=== PATIENT | male | born 1950 | race Caucasian/White ===

== ENCOUNTER 2018-06-17 13:31 | Inpatient (IN) ==
[2018-06-17] MEDS ORDERED: Aluminum/Magnesium/Simethacone Susp 30 ML UDC PO PRN (19:16)
[2018-06-17] MEDS ORDERED: Acetaminophen 325 MG Tablet PO PRN (19:16)
[2018-06-17] MEDS ORDERED: Dextrose 50% in Water 50 ML Vial IV.PUSH PRN (21:48)
[2018-06-17] MEDS ORDERED: LORazepam 0.5 MG Tablet SL PRN (23:28)
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
[2018-06-18] MEDS: Famotidine 20 MG Tablet PO SCH ×4 (00:52→21:00)
[2018-06-18] MEDS: Insulin NovoLOG Aspart Correctional Sugar Inj SQ SCH ×5 (03:45→21:00)
[2018-06-18] MEDS ORDERED: Docusate Sodium 100 MG Capsule PO PRN (09:00)
[2018-06-18] MEDS: Furosemide 40 MG Tablet PO SCH ×3 (09:31→21:00)
[2018-06-18] MEDS: Insulin Detemir Inj 1,000 UNIT/10 ML Vial SQ SCH ×2 (09:32→13:41)
[2018-06-18] MEDS: Enoxaparin Inj 40 MG/0.4 ML Syringe SQ SCH ×2 (09:32→13:42)
--- NOTE | 2018-06-18 10:11 | P.PNWCN ---
Wound Care Nurse Consult Description: Consult for Wound Management of Bilateral LE per EVELIA Castillo Communicated with: Patient RN Recommendation: Bilateral lower extremities Q3D and PRN soiling. Gently cleanse wounds using Normal Saline or Wound Cleanser and pat dry. Gamerco Cavilon skin barrier film to intact surrounding tight red skin. Apply Optifoam Gentle AG non adhesive dressing and secure with rolled gauze and SALIMA if desired. Encourage patient to elevate legs if tolerable when not ambulating. Additional information: Patient seen on sitting up in chair with legs dangling in common room for bilateral lower extremity wounds. Patient refused assessment of legs and [facility] Bilateral lower extremities appear tight, red, shiny, with multiple shallow wounds visualized anteriorly with minimal clear yellow exudate noted distally from wound beds down to top of pt socks. Wounds appear to be mixed etiology of venous and arterial according to their irregular and well defined shapes. Wounds are noted with full thickness and partial thickness skin loss. Patient is noted with CHF and E.F. of 15-20%. Patient is not a candidate for unna boot applications in my expert opinion, therefore recommendations were made for dressing changes Q3D using Optifoam gentle AG secured with cling.
--- NOTE | 2018-06-18 16:36 | P.PN ---
Subjective Interval history: Sitting up in day room, does not understand why he is in psychiatric unit. He wants to go home. Denies any chest pain, no shortness of breath. Indicates that he is in the process of buying a home. He does not recall the name of the radiology orderly who placed the AICD. No acute changes overnight. Physical Exam Vital signs: Vital Signs 06/18/18 05:38 Temperature 97 F L Pulse Rate 103 H Respiratory Rate 17 Blood Pressure 138/90 Pulse Oximetry 98 Narrative: GENERAL: 87-year-old elderly male, sitting up in the room, no apparent distress. Appears disheveled. SKIN: Venous stasis ulcers noted to lower extremity. There is chronic venous discoloration. There is some weeping of both legs. HEAD: Atraumatic. Normocephalic. EYES: Pupils equal and round. No scleral icterus. No injection or drainage. ENT: No nasal bleeding or discharge. Mucous membranes pink and moist. NECK: Trachea midline. No JVD. CARDIOVASCULAR: S1-S2, occasionally irregular. Unable to detect any murmurs rubs or gallops. CHEST: Left chest wall with dressing in place, zip tie suture in place. RESPIRATORY: No accessory muscle use. Clear to auscultation. Breath sounds equal bilaterally. GASTROINTESTINAL: Abdomen soft, non-tender, nondistended. Hepatic and splenic margins not palpable. MUSCULOSKELETAL: Extremities without clubbing, cyanosis, trace pretibial edema. No obvious deformities. NEUROLOGICAL: Awake, alert oriented 2, forgetful. Nonfocal deficits. PSYCHIATRIC: Anxious, cooperative. Results - Labs Laboratory Results - last 24 hr 06/18/18 06/18/18 03:39 07:58 POC Glucose 252 H 193 H Assessment and Plan - Plan - Plan Mr. Casey is a 67 y/o male with a history of hypertension, diabetes mellitus, CHF with an EF of 15 - 20% s/p recent AICD placement, and arthritis who was transferred from [facility] in [place] for admission to the med/ psych unit here for management of psychosis. Psychosis - Management per psychiatry - continue medications from [facility] pending psych evaluation CHF - BNP at [facility] reported [id number] on admission to [facility] 06/11 - progress notes from [facility] indicate EF of 15 - 20% with moderate to severe MR and moderate TR - continue cardiac medications from [facility]: Lasix, Losartan, Carvedilol, baby ASA - does not appear to be in acute CHF on exam - recent AICD placement - hopefully more reliable history will be available soon. He still has sutures in place. - lipid profile within normal parameters at [facility] Diabetes Mellitus - HgA1C 10.8 on 06/11 at [facility] - continue Levemir - Diabetic and Cardiac diet restrictions - Accu checks AC and HS and 0300 with low dose SS Novolog coverage - if blood glucose trends stable, D/C 0300 check - PRN hypoglycemia treatment protocol Bilateral LE wounds - appear chronic secondary to PVD - consult wound care nurse -input appreciated. Wound care orders noted DVT prophylaxis - continue Lovenox 40 mg subq q24h
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
[2018-06-19] MEDS: Insulin NovoLOG Aspart Correctional Sugar Inj SQ SCH ×5 (07:56→20:26)
[2018-06-19] MEDS: Famotidine 20 MG Tablet PO SCH ×2 (08:52→20:19)
[2018-06-19] MEDS: Furosemide 40 MG Tablet PO SCH ×2 (08:52→20:19)
[2018-06-19] MEDS: Insulin Detemir Inj 1,000 UNIT/10 ML Vial SQ SCH (08:52)
[2018-06-19] MEDS: Enoxaparin Inj 40 MG/0.4 ML Syringe SQ SCH (08:53)
--- NOTE | 2018-06-19 14:59 | P.PN ---
Subjective Interval history: follow up for medical management: pt. ambulating in day room on bare feet, wound to legs weeping serous fluid, no cp, no sob, ambulating without any difficulty, no fever, no acute changes overnight. Remains with disorganized thinking, doesn't understand why he is still here. Still can't recall when AICD was done, thinks 2 weeks ago. Not sure of facility Physical Exam Vital signs: Vital Signs 06/18/18 18:00 06/19/18 06:12 Temperature 97.6 F 98.4 F Pulse Rate 82 88 Respiratory Rate 17 17 Blood Pressure 123/66 107/71 Pulse Oximetry 99 97 Narrative: GENERAL: 87-year-old elderly male, sitting up in the room, no apparent distress. Appears disheveled. SKIN: Venous stasis ulcers noted to lower extremity. There is chronic venous discoloration. There is some weeping of both legs. HEAD: Atraumatic. Normocephalic. EYES: Pupils equal and round. No scleral icterus. No injection or drainage. ENT: No nasal bleeding or discharge. Mucous membranes pink and moist. NECK: Trachea midline. No JVD. CARDIOVASCULAR: S1-S2, occasionally irregular. Unable to detect any murmurs rubs or gallops. CHEST: Left chest wall with dressing in place, zip tie suture in place. RESPIRATORY: No accessory muscle use. Clear to auscultation. Breath sounds equal bilaterally. GASTROINTESTINAL: Abdomen soft, non-tender, nondistended. Hepatic and splenic margins not palpable. MUSCULOSKELETAL: Extremities without clubbing, cyanosis, trace pretibial edema. No obvious deformities. NEUROLOGICAL: Awake, alert oriented 2, forgetful. Nonfocal deficits. PSYCHIATRIC: Anxious, cooperative. Results - Labs Laboratory Results - last 24 hr 06/18/18 06/19/18 06/19/18 20:37 07:43 11:22 POC Glucose 357 H 177 H 344 H Assessment and Plan - Plan - Plan Mr. Casey is a 67 y/o male with a history of hypertension, diabetes mellitus, CHF with an EF of 15 - 20% s/p recent AICD placement, and arthritis who was transferred from [facility] in [place] for admission to the med/ psych unit here for management of psychosis. Psychosis - Management per psychiatry - continue medications from [facility] pending psych evaluation CHF - BNP at [facility] reported [id number] on admission to [facility] 06/11 - progress notes from [facility] indicate EF of 15 - 20% with moderate to severe MR and moderate TR - continue cardiac medications from [facility]: Lasix, Losartan, Carvedilol, baby ASA - does not appear to be in acute CHF on exam - recent AICD placement - hopefully more reliable history will be available soon. He still has sutures in place. Unclear when this was done, patient is a poor historian. Diabetes Mellitus - HgA1C 10.8 on 06/11 at [facility] - continue Levemir 30 units subcu daily - Accu checks AC and HS and 0300 with low dose SS Novolog coverage - if blood glucose trends stable, D/C 0300 check - PRN hypoglycemia treatment protocol -Blood sugars markedly elevated, changed to diabetic diet. Bilateral LE wounds - appear chronic secondary to PVD - consult wound care nurse -input appreciated. Wound care orders noted DVT prophylaxis - continue Lovenox 40 mg subq q24h BMP in the morning
--- NOTE | 2018-06-19 17:06 | P.PNPSY ---
Subjective Remarks: This is a request for second opinion. Admission note was reviewed and I agree with the history. Patient was seen and case was discussed with nursing. Patient remains grossly confused and disorganized. He is pressured and hyperverbal. However, he is alert and oriented 3 today. Patient believes that the bank is about to approve him for alone in his house and that [facility] send him a email to come to [place] since we take care of veterans. He is perseverative on discharge. He denies depressed mood and denies suicidal or homicidal ideation intent or plan. Denies auditory or visual hallucinations Mental Status Examination Appearance: Appropriate Consciousness: Alert Orientation: Person, Place, Date/Time Motor Activity: Normal gait Speech: Unremarkable Language: Adequate Fund of Knowledge: Inadequate Attention and Concentration: Easily distracted Memory: Impaired Mood: Good Affect: Anxious Thought Process & Associations: Circumstantial, Disorganized Thought Content: Delusional Hallucination Type: None Delusion Type: Bizarre Suicidal Ideation: No Suicidal Plan: No Suicidal Intention: No Homicidal Ideation: No Homicidal Plan: No Homicidal Intention: No Insight: Poor Judgment: Poor Assessment and Plan - Assessment (1) Unspecified psychosis Code(s): F29 - Unspecified psychosis not due to a substance or known physiological condition Status: Acute - Plan Plan: I agree with the first opinion to continue petition. Criteria include acute psychosis Justification for Continued Inpatient Stay: Patient would decompensate in a less restrictive setting
--- NOTE | 2018-06-19 17:34 | ECG ---
Date Performed: 06/17/2018 Time Performed: 20:26:50 PTAGE: 67 years EKG: Sinus rhythm WITH SINUS ARRHYTHMIA RIGHT BUNDLE BRANCH BLOCK LEFT ANTERIOR FASCICULAR BLOCK SEPTAL MYOCARDIAL INF ARCTION , PROBABLY OLD ABNORMAL ECG NO PREVIOUS TRACING DOCTOR: Mitra Kramer Interpretating Date/Time 06/19/2018 17:30:08
[2018-06-19 18:28] LABS: Baso # (Auto) 0.1 th/mm3 (0.0-0.2); Baso % (Auto) 0.9 % (0.0-2.0); Eos # (Auto) 0.2 th/mm3 (0.0-0.4); Eos % (Auto) 2.2 % (0.0-4.0); Hematocrit 39.3 % (39.0-51.0); Hemoglobin 13.1 gm/dL (13.0-17.0); Lymph # (Auto) 1.3 th/mm3 (1.0-4.8); Lymph % (Auto) 18.3 % (9.0-44.0); Mean Corpuscular HGB Conc 33.2 % (32.0-36.0); Mean Corpuscular Hemoglobin 29.1 pg (27.0-34.0); Mean Corpuscular Volume 87.6 fL (80.0-100.0); Mean Platelet Volume 6.7 fL (7.0-11.0); Mono # (Auto) 0.7 th/mm3 (0.0-0.9); Mono % (Auto) 9.4 % (0.0-8.0); Neut # (Auto) 5.1 th/mm3 (1.8-7.7); Neut % (Auto) 69.2 % (16.0-70.0); Platelet Count 236 th/mm3 (150-450); Red Blood Count 4.48 mil/mm3 (4.50-5.90); Red Cell Distribution Width 16.6 % (11.6-17.2); White Blood Count 7.3 th/mm3 (4.0-11.0)
[2018-06-19 18:47] LABS: Albumin 3.3 g/dL (3.4-5.0); Anion Gap 9 meq/L (5-15); Aspartate Aminotransferase 14 U/L (15-37); Blood Urea Nitrogen 35 mg/dL (7-18); Calcium 8.7 mg/dL (8.5-10.1); Carbon Dioxide 28.1 meq/L (21.0-32.0); Chloride 103 meq/L (98-107); Glomerular Filtration Rate 44 mL/min (>89); Glucose,Random 198 mg/dL (74-106); Potassium 4.7 meq/L (3.5-5.1); Sodium 140 meq/L (136-145)
[2018-06-19 18:59] LABS: Alanine Aminotransferase 26 U/L (12-78); Alkaline Phosphatase 108 U/L (45-117); Total Protein 7.2 g/dL (6.4-8.2)
[2018-06-20] MEDS: Insulin NovoLOG Aspart Correctional Sugar Inj SQ SCH ×5 (03:48→21:24)
[2018-06-20] MEDS: Famotidine 20 MG Tablet PO SCH ×2 (08:17→20:36)
[2018-06-20] MEDS: Furosemide 40 MG Tablet PO SCH ×2 (08:17→17:31)
[2018-06-20] MEDS: Enoxaparin Inj 40 MG/0.4 ML Syringe SQ SCH (08:17)
[2018-06-20] MEDS: Insulin Detemir Inj 1,000 UNIT/10 ML Vial SQ SCH (08:17)
--- NOTE | 2018-06-20 14:00 | P.PNPSY ---
Subjective Remarks: On psychiatric evaluation today the patient presents quite guarded, oppositional , stating that he does not want to talk with me. He says that he has been kidnapped and putting in fci here. He says that he is a [place] he does not want to be here, he was to be in the [facility]. He denies suicidal and homicidal ideation, denies visual and auditory hallucinations. The patient has been quite isolated in the unit, making accusations, but no aggressive Mental Status Examination Appearance: Appropriate Consciousness: Alert Orientation: Person, Place, Date/Time Motor Activity: Normal gait Speech: Unremarkable Language: Adequate Fund of Knowledge: Inadequate Attention and Concentration: Easily distracted Memory: Impaired Mood: Good Affect: Anxious Thought Process & Associations: Circumstantial, Disorganized Thought Content: Delusional Hallucination Type: None Delusion Type: Bizarre Suicidal Ideation: No Suicidal Plan: No Suicidal Intention: No Homicidal Ideation: No Homicidal Plan: No Homicidal Intention: No Insight: Poor Judgment: Poor Assessment and Plan - Assessment (1) Unspecified psychosis Code(s): F29 - Unspecified psychosis not due to a substance or known physiological condition Status: Acute - Plan Plan: Encourage the patient to take psychotropics. Continue hospitalization for stabilization. The patient continues to be paranoid Justification for Continued Inpatient Stay: Continue psychiatric hospitalization for stabilization.
--- NOTE | 2018-06-20 16:13 | P.PN ---
Subjective Interval history: follow up for medical management: pt. removed dressings last night after they were done, states legs were hurting. No cp, no sob. Legs with less edema today. Poor historian Physical Exam Vital signs: Vital Signs 06/19/18 18:00 06/19/18 20:00 06/20/18 06:22 Temperature 98.3 F 98.7 F Pulse Rate 87 79 Respiratory Rate 18 18 16 Blood Pressure 117/78 107/72 Pulse Oximetry 98 96 Intake & Output 06/19/18 06/20/18 06/20/18 18:59 06:59 18:59 Intake Total 1080 / 1080 Balance 1080 / 1080 Intake: Oral 1080 / 1080 Narrative: GENERAL: 87-year-old elderly male, sitting up in the room, no apparent distress. Appears disheveled. SKIN: Venous stasis ulcers noted to lower extremity. There is chronic venous discoloration. There is some weeping of both legs. HEAD: Atraumatic. Normocephalic. EYES: Pupils equal and round. No scleral icterus. No injection or drainage. ENT: No nasal bleeding or discharge. Mucous membranes pink and moist. NECK: Trachea midline. No JVD. CARDIOVASCULAR: S1-S2, occasionally irregular. Unable to detect any murmurs rubs or gallops. CHEST: Left chest wall with dressing in place, zip tie suture in place. RESPIRATORY: No accessory muscle use. Clear to auscultation. Breath sounds equal bilaterally. GASTROINTESTINAL: Abdomen soft, non-tender, nondistended. Hepatic and splenic margins not palpable. MUSCULOSKELETAL: Extremities without clubbing, cyanosis, trace pretibial edema. No obvious deformities. NEUROLOGICAL: Awake, alert oriented 2, forgetful. Nonfocal deficits. PSYCHIATRIC: Anxious Results - Labs CBC & Chem 7: 06/19/18 18:10 06/19/18 18:10 Laboratory Results - last 24 hr 06/19/18 06/19/18 06/19/18 16:43 18:10 18:10 WBC 7.3 RBC 4.48 L Hgb 13.1 Hct 39.3 MCV 87.6 MCH 29.1 MCHC 33.2 RDW 16.6 Plt Count 236 MPV 6.7 L Neut % (Auto) 69.2 Lymph % (Auto) 18.3 [place]ce[place] % (Auto) 9.4 H Eos % (Auto) 2.2 Baso % (Auto) 0.9 Neut # (Auto) 5.1 Lymph # (Auto) 1.3 [place] # (Auto) 0.7 Eos # (Auto) 0.2 Baso # (Auto) 0.1 WBC Differential . Differential Comment Auto diff final Sodium 140 Potassium 4.7 Chloride 103 Carbon Dioxide 28.1 Anion Gap 9 BUN 35 H Creatinine 1.58 H Estimated GFR 44 L POC Glucose 250 H Random Glucose 198 H Calcium 8.7 Total Bilirubin 0.9 AST 14 L ALT 26 Alkaline Phosphatase 108 Total Protein 7.2 Albumin 3.3 L 06/19/18 06/20/18 06/20/18 19:51 03:46 07:19 WBC RBC Hgb Hct MCV MCH MCHC RDW Plt Count MPV Neut % (Auto) Lymph % (Auto) [place]ce[place] % (Auto) Eos % (Auto) Baso % (Auto) Neut # (Auto) Lymph # (Auto) [place]ceana # (Auto) Eos # (Auto) Baso # (Auto) WBC Differential Differential Comment Sodium Potassium Chloride Carbon Dioxide Anion Gap BUN Creatinine Estimated GFR POC Glucose 240 H 89 107 Random Glucose Calcium Total Bilirubin AST ALT Alkaline Phosphatase Total Protein Albumin 06/20/18 11:18 WBC RBC Hgb Hct MCV MCH MCHC RDW Plt Count MPV Neut % (Auto) Lymph % (Auto) [place] % (Auto) Eos % (Auto) Baso % (Auto) Neut # (Auto) Lymph # (Auto) [place] # (Auto) Eos # (Auto) Baso # (Auto) WBC Differential Differential Comment Sodium Potassium Chloride Carbon Dioxide Anion Gap BUN Creatinine Estimated GFR POC Glucose 317 H Random Glucose Calcium Total Bilirubin AST ALT Alkaline Phosphatase Total Protein Albumin Assessment and Plan - Plan - Plan Mr. Casey is a 67 y/o male with a history of hypertension, diabetes mellitus, CHF with an EF of 15 - 20% s/p recent AICD placement, and arthritis who was transferred from [facility] in [place] for admission to the med/ psych unit here for management of psychosis. Psychosis pt. remains paranoid, doesn't believe he belongs here - Management per psychiatry CHF - BNP at [facility] reported [id number] on admission to [facility] 06/11 - progress notes from [facility] indicate EF of 15 - 20% with moderate to severe MR and moderate TR - continue cardiac medications from [facility]: Lasix, Losartan, Carvedilol, baby ASA - does not appear to be in acute CHF on exam - recent AICD placement - hopefully more reliable history will be available soon. He still has sutures in place. Unclear when this was done, patient is a poor historian. For now keep dressing in place, we have no other information. No next of kin information either to verify when device was placed. Renal insufficiency Creat 1.58 -Dec. Lasix to 20 mg PO BID Diabetes Mellitus - HgA1C 10.8 on 06/11 at [facility] - continue Levemir 30 units subcu daily - Accu checks AC and HS and 0300 with low dose SS Novolog coverage - - PRN hypoglycemia treatment protocol -Blood sugars markedly elevated, changed to diabetic diet. Bilateral LE wounds - appear chronic secondary to PVD - consult wound care nurse -input appreciated. Wound care orders noted -pt. removed dressings last night, RN will attempt to re-wrap again. DVT prophylaxis - continue Lovenox 40 mg subq q24h Labs reviewed
[2018-06-21] MEDS: Insulin NovoLOG Aspart Correctional Sugar Inj SQ SCH ×7 (06:24→21:48)
[2018-06-21] MEDS: Famotidine 20 MG Tablet PO SCH ×2 (09:33→21:07)
[2018-06-21] MEDS: Insulin Detemir Inj 1,000 UNIT/10 ML Vial SQ SCH (09:33)
[2018-06-21] MEDS: Enoxaparin Inj 40 MG/0.4 ML Syringe SQ SCH (09:34)
[2018-06-21] MEDS: Furosemide 40 MG Tablet PO SCH ×2 (09:37→17:34)
--- NOTE | 2018-06-21 16:43 | P.PNPSY ---
Subjective Remarks: Patient seen for follow-up, chart reviewed. Discussion with nursing staff reported that the patient discharge focused, refusing to let staff to wrap his legs where he has ulcers, expresses being worried about his vehicle. Patient was found ambulating on unit with draining ulcer and was redirected back to his room and encouraged staff to assist in cleaning it which he refused initially but later had showered and attempted to clean himself. He continues to refuse have staff to wrap his m stating that having been told by slot service specialist at a previous hospital that he should not be wrapped. Patient continues to be' s discharge focused, was encouraged to allow staff to care for his wound/ulcer on the lower extremities and was encouraged to wait to be evaluated by the medical team and wound care is consult team for recommendations. Collateral admission was obtained by therapist with patient's son provided some history the patient's treatments (see therapist noted in chart). Patient continues to report wanting to be discharged to find his vehicle and make his way down to [place]. He continues to state that the email that he received was email from the [employer] and no longer stating that it was from directly for [facility]. Review of Systems All other systems reviewed negative except as stated in HPI Mental Status Examination Appearance: Appropriate Consciousness: Alert Orientation: Person, Place, Date/Time Motor Activity: Normal gait Speech: Unremarkable Language: Adequate Fund of Knowledge: Inadequate Attention and Concentration: Easily distracted Memory: Impaired Mood: Good Affect: Anxious Thought Process & Associations: Circumstantial Thought Content: Preoccupations (With his vehicle and to be discharged), Delusional Hallucination Type: None Delusion Type: Bizarre Suicidal Ideation: No Suicidal Plan: No Suicidal Intention: No Homicidal Ideation: No Homicidal Plan: No Homicidal Intention: No Insight: Poor Judgment: Poor Assessment and Plan - Assessment (1) Unspecified psychosis Code(s): F29 - Unspecified psychosis not due to a substance or known physiological condition Status: Acute - Plan Plan: Patient at this time continues to be discharged focus, concerned about his vehicle which may be impounded. Patient clarified now that his [facility] was [facility] not from [facility] specifically. Collateral formation confirmed the patient has no past psychiatric history and was previously living in [place] where her son had assisted him at a detention center until patient decided to try back to [place] which led to his hospitalization. Patient's continues to be unable to be contacted. We will continue to coordinate with patient's VA services to have patient transferred directly to the [facility] for continued evaluation and management of ongoing medical issues. Patient not endorsing any perceptual services, noted to have concrete thought process linear, not noted to be psychotic but may have MCI. Justification for Continued Inpatient Stay: At risk for further decompensation if at lower level of care.
[2018-06-22] MEDS: Insulin NovoLOG Aspart Correctional Sugar Inj SQ SCH ×6 (03:00→20:54)
[2018-06-22] MEDS: Furosemide 40 MG Tablet PO SCH ×2 (10:02→17:39)
[2018-06-22] MEDS: Famotidine 20 MG Tablet PO SCH ×2 (10:02→20:55)
[2018-06-22] MEDS: Insulin Detemir Inj 1,000 UNIT/10 ML Vial SQ SCH (10:02)
[2018-06-22] MEDS: Enoxaparin Inj 40 MG/0.4 ML Syringe SQ SCH (10:04)
--- NOTE | 2018-06-22 13:16 | P.TTN ---
- Patient Problems Problems: 1. Discharge planning 2. Medication compliance 3. Knowledge deficit 4. Lack of coping skills - Progress Toward Goals Provider Present: Dr. Karissa Randle Provider Input: Pt is delusional. There is no one to sign for medication. He had recent heart surgery. Nurse(s) Present: Rick Nurse Input: Pt is med compliant although he is refusing care for his ulcered wounds. He is DC oriented, with cognitive deficits, and desires to transfer to the [facility]. Psychiatric Counselors Present: Kiara Evans LCSW, Chad Brambila Jr., [facility], Debbie Hoff, [facility], Other Psychiatric Therapist Input: Pt is grandiose and delusional. He is covered 90% through the [facility]. He is connected to the [facility] in [place]. Group Spec/RT/OT/CRUZ Present: ANTHONY Arroyo Group Spec/RT/OT/CRUZ Input: Pt does not participate in groups - Documentation Teaching Recipient: Patient
--- NOTE | 2018-06-22 14:38 | P.PNPSY ---
Subjective Remarks: Patient seen for follow, chart reviewed. Discussion nursing staff reported the patient continued to be discharge focused, we will take medications morning stated he would start to refuse medication at discharge. Patient was found sitting hospital chair noted to be somewhat irritable and with some increased paranoia stating that he is being held against his will and that he refuses to eat or take medicines and believes that he will be poisoned here as he is not allowed to leave. Patient was encouraged to continue his treatment for his medical issues and that should continues actively arranging for safe discharge plan and reconnection with him to the VA services. Patient was encouraged to continue recommendations as per prior medical team for lower extremity ulcers which at this time does not appear to be draining. Review of Systems All other systems reviewed negative except as stated in HPI Mental Status Examination Appearance: Appropriate Consciousness: Alert Orientation: Person, Place, Date/Time Motor Activity: Normal gait Speech: Unremarkable Language: Adequate Fund of Knowledge: Inadequate Attention and Concentration: Easily distracted Memory: Impaired Mood: Good Affect: Anxious Thought Process & Associations: Circumstantial Thought Content: Preoccupations (With his vehicle and to be discharged), Delusional Hallucination Type: None Delusion Type: Bizarre Suicidal Ideation: No Suicidal Plan: No Suicidal Intention: No Homicidal Ideation: No Homicidal Plan: No Homicidal Intention: No Insight: Poor Judgment: Poor Assessment and Plan - Assessment (1) Unspecified psychosis Code(s): F29 - Unspecified psychosis not due to a substance or known physiological condition Status: Acute - Plan Plan: Patient this time continues to be discharge focused, believing that he is being held against his will with now believing that staff is wanting to poison him which he therefore states he will refuse to eat or take any medicines here in the hospital as he is being held against his will. Patient had no sources paranoia prior to admission but frustration of being a locked unit and may be contributing to his current paranoid ideations which is likely contextual due to his involuntary hospitalization. Continue to encourage patient to continue current medical treatment. Continue to monitor mood and behavior. Treatment team actively attended to coordinate safe discharge plan with the [place] as patient' s son does not want to be involved in patient's care. Justification for Continued Inpatient Stay: At risk for decompensation a lower level care.
[2018-06-23] MEDS: Insulin NovoLOG Aspart Correctional Sugar Inj SQ SCH ×5 (03:08→21:43)
[2018-06-23] MEDS: Insulin Detemir Inj 1,000 UNIT/10 ML Vial SQ SCH (08:45)
[2018-06-23] MEDS: Famotidine 20 MG Tablet PO SCH ×2 (08:48→21:04)
[2018-06-23] MEDS: Enoxaparin Inj 40 MG/0.4 ML Syringe SQ SCH (08:49)
[2018-06-23] MEDS: Furosemide 40 MG Tablet PO SCH (08:49)
--- NOTE | 2018-06-23 11:44 | P.TTN ---
- Patient Problems Problems: 1. Discharge planning 2. Medication compliance 3. Knowledge deficit 4. Lack of coping skills - Progress Toward Goals Provider Present: Dr. Karissa Randle Provider Input: Pt is delusional. There is no one to sign for medication. He had recent heart surgery. 06/23/18: Pt is expected to attend court hearing for legal considerations. Nurse(s) Present: Rick Nurse Input: Pt is med compliant although he is refusing care for his ulcered wounds. He is DC oriented, with cognitive deficits, and desires to transfer to the [place] hospital. 06/23/18: Pt continues to require medical care for wounds, he continues to express desire to return to [place] hospital. Psychiatric Counselors Present: Kiara Evans LCSW, Chad Brambila Jr., [facility], Debbie Hoff, [facility], Other Psychiatric Therapist Input: Pt is grandiose and delusional. He is covered 90% through the [place]. He is connected to the [place] in [place]. 06/23/18: Pt continues to meet criteria, expected discharge may include return to [facility]. Per Debbie's contact with family, family related housing is not an option. Group Spec/RT/OT/CRUZ Present: MARCY Mejia, ANTHONY Arroyo, Adriano Macias, OT Group Spec/RT/OT/CRUZ Input: Pt does not participate in groups. 06/23/18: Pt does not attend groups, per pt refusals. - Discharge Plan Per medical staff; Pt expected to attend court hearing on 06/24/18, pt's D/C plan option is to return pt to [facility], pending court approval. - Documentation Scribe: Adriano Macias, MS, OTR Teaching Recipient: Patient
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
--- NOTE | 2018-06-23 15:30 | P.PNPSY ---
Subjective Remarks: Patient seen today with nurse Bryan, chart reviewed, Dr. Randle H&P and progress notes also reviewed along with neuropsychological report by Dr. Stacy. Patient seen by me alert diffusely disoriented somewhat confused in his statements so he denies suicidality house. He is not certain how or why he finally wound up. [employer] except for the "[place] thing". In any event at this time patient does make criteria. Patient will be brought to [facility] tomorrow further assessment Review of Systems All other systems reviewed negative except as stated in HPI Mental Status Examination Appearance: Appropriate Consciousness: Alert Orientation: Person, Place, Date/Time (Vaguely) Motor Activity: Normal gait Speech: Unremarkable Language: Adequate Fund of Knowledge: Inadequate Attention and Concentration: Easily distracted Memory: Impaired Mood: Other (Euthymic to mildly irritable) Affect: Other (Slight increased range and intensity) Thought Process & Associations: Circumstantial, Disorganized Thought Content: Preoccupations (With his vehicle and to be discharged), Delusional Hallucination Type: None Delusion Type: Bizarre Suicidal Ideation: No Suicidal Plan: No Suicidal Intention: No Homicidal Ideation: No Homicidal Plan: No Homicidal Intention: No Insight: Poor Judgment: Poor Assessment and Plan - Assessment (1) Unspecified psychosis Code(s): F29 - Unspecified psychosis not due to a substance or known physiological condition Status: Acute - Plan Plan: Patient remains somewhat psychotic diffusely confused and disorganized. Patient scheduled for [facility] tomorrow Justification for Continued Inpatient Stay: At this time patient would decompensate a place to a lower level of care Discharge Planning: To be determined patient scheduled for [facility] tomorrow
[2018-06-24] MEDS: Famotidine 20 MG Tablet PO SCH ×2 (08:13→20:51)
[2018-06-24] MEDS: Enoxaparin Inj 40 MG/0.4 ML Syringe SQ SCH (08:14)
[2018-06-24] MEDS: Furosemide 40 MG Tablet PO SCH ×2 (10:58→11:08)
[2018-06-24] MEDS: Insulin Detemir Inj 1,000 UNIT/10 ML Vial SQ SCH (11:19)
[2018-06-24] MEDS: Insulin NovoLOG Aspart Correctional Sugar Inj SQ SCH ×3 (11:19→17:04)
--- NOTE | 2018-06-24 16:11 | P.PNPSY ---
Subjective Remarks: [place], patient retained by Silverio Florez. [employer] appointed his guardian advocate. Patient remains somewhat confused delusional and disorganized. Though showing some irritability with the decision made by the court. For now continue treatment Review of Systems All other systems reviewed negative except as stated in HPI Mental Status Examination Appearance: Appropriate Consciousness: Alert Orientation: Person, Place, Date/Time (Vaguely) Motor Activity: Normal gait Speech: Unremarkable Language: Adequate Fund of Knowledge: Inadequate Attention and Concentration: Easily distracted Memory: Impaired Mood: Other (Euthymic to mildly irritable) Affect: Other (Slight increased range and intensity) Thought Process & Associations: Circumstantial, Disorganized Thought Content: Preoccupations (With his vehicle and to be discharged), Delusional Hallucination Type: None Delusion Type: Bizarre Suicidal Ideation: No Suicidal Plan: No Suicidal Intention: No Homicidal Ideation: No Homicidal Plan: No Homicidal Intention: No Insight: Poor Judgment: Poor Assessment and Plan - Assessment (1) Unspecified psychosis Code(s): F29 - Unspecified psychosis not due to a substance or known physiological condition Status: Acute - Plan Plan: Patient remains confused somewhat psychotic and delusional. Justification for Continued Inpatient Stay: At this time patient would decompensate a place to a lower level of care Discharge Planning: To be determined Request Healthcare Surrogate/Guardian Advocate?: Yes
[2018-06-25] MEDS: Insulin NovoLOG Aspart Correctional Sugar Inj SQ SCH ×4 (09:38→21:09)
[2018-06-25] MEDS: Enoxaparin Inj 40 MG/0.4 ML Syringe SQ SCH (09:41)
[2018-06-25] MEDS: Insulin Detemir Inj 1,000 UNIT/10 ML Vial SQ SCH (09:44)
[2018-06-25] MEDS: Furosemide 40 MG Tablet PO SCH (09:48)
--- NOTE | 2018-06-25 09:49 | P.PNPSY ---
Subjective Remarks: In the dayroom with nurse Radha. Chart reviewed. Patient continues upset confused over the [place] proceedings yesterday. He was retained by Silverio Florez. Patient appears to be quite selective in choosing what he remembers and how he interprets statements made at the hearing. His confusion delusions psychosis remained. Guardian advocate as being appointed. We will offer Resporal 0.5 mg twice daily Review of Systems All other systems reviewed negative except as stated in HPI Mental Status Examination Appearance: Appropriate Consciousness: Alert Orientation: Person, Place, Date/Time (Vaguely) Motor Activity: Normal gait Speech: Unremarkable Language: Adequate Fund of Knowledge: Inadequate Attention and Concentration: Easily distracted Memory: Impaired Mood: Other (Euthymic to mildly irritable) Affect: Other (Slight increased range and intensity) Thought Process & Associations: Circumstantial, Disorganized Thought Content: Preoccupations (With his vehicle and to be discharged), Delusional Hallucination Type: None Delusion Type: Bizarre, Paranoid Suicidal Ideation: No Suicidal Plan: No Suicidal Intention: No Homicidal Ideation: No Homicidal Plan: No Homicidal Intention: No Insight: Poor Judgment: Poor Assessment and Plan - Assessment (1) Unspecified psychosis Code(s): F29 - Unspecified psychosis not due to a substance or known physiological condition Status: Acute - Plan Plan: At this time patient remains confused and psychotic. She retained by [facility] to be guardian advocate. 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
[2018-06-25] MEDS: Famotidine 20 MG Tablet PO SCH ×2 (09:51→21:09)
[2018-06-25] MEDS: risperiDONE 0.5 MG ODT PO SCH (21:09)
[2018-06-26] MEDS: Insulin NovoLOG Aspart Correctional Sugar Inj SQ SCH ×5 (06:51→20:05)
[2018-06-26] MEDS: Famotidine 20 MG Tablet PO SCH ×2 (08:42→20:29)
[2018-06-26] MEDS: Insulin Detemir Inj 1,000 UNIT/10 ML Vial SQ SCH (08:43)
[2018-06-26] MEDS: Enoxaparin Inj 40 MG/0.4 ML Syringe SQ SCH (08:43)
[2018-06-26] MEDS: risperiDONE 0.5 MG ODT PO SCH ×2 (08:43→20:29)
[2018-06-26] MEDS: Furosemide 40 MG Tablet PO SCH (08:43)
--- NOTE | 2018-06-26 08:47 | P.PNPSY ---
Subjective Remarks: Patient is seen in day room with nurse Gila, patient, more cooperative today showing less irritability vigilance and paranoia. He is compliant with his medications. Still with little to no insight. The grandiosity also continues. For now continue treatment no change Review of Systems All other systems reviewed negative except as stated in HPI Mental Status Examination Appearance: Appropriate Consciousness: Alert Orientation: Person, Place, Date/Time (Vaguely) Motor Activity: Normal gait Speech: Unremarkable Language: Adequate Fund of Knowledge: Inadequate Attention and Concentration: Easily distracted Memory: Impaired Mood: Other (Euthymic to mildly irritable) Affect: Other (Slight increased range and intensity) Thought Process & Associations: Circumstantial, Disorganized Thought Content: Preoccupations (With his vehicle and to be discharged), Delusional Hallucination Type: None Delusion Type: Bizarre, Paranoid Suicidal Ideation: No Suicidal Plan: No Suicidal Intention: No Homicidal Ideation: No Homicidal Plan: No Homicidal Intention: No Insight: Poor Judgment: Poor Assessment and Plan - Assessment (1) Unspecified psychosis Code(s): F29 - Unspecified psychosis not due to a substance or known physiological condition Status: Acute - Plan Plan: Patient remains confused disoriented though calm today with no significant behavioral problems compliant medication Justification for Continued Inpatient Stay: At this time patient would decompensate if placed in a lower level of care Discharge Planning: To be determined Request Healthcare Surrogate/Guardian Advocate?: Yes (1) Unspecified psychosis Qualifiers: Psychosis type: brief psychotic disorder Qualified Code(s): F23 - Brief psychotic disorder
--- NOTE | 2018-06-26 15:08 | P.PN ---
Subjective Interval history: Follow-up on patient with bilateral lower extremity wounds, recent AICD placement, diabetes. Patient seen and examined. Patient denies any acute medical complaints. He denies any chest pain or shortness of breath. He denies any fever or chills. He denies any nausea, vomiting or abdominal pain. Patient tells me that something bad is going to happen to [place] and he is going to buy four guard dogs which will cost him about $10,000 to help protect himself. He also tells me that he has $1 million lawsuit back in [place] and the money is in escrow. Physical Exam Vital signs: Vital Signs 06/25/18 17:34 06/26/18 06:42 Temperature 98.5 F 97.8 F Pulse Rate 74 75 Respiratory Rate 18 16 Blood Pressure 93/57 L 132/65 Pulse Oximetry 97 95 Intake & Output 06/25/18 06/26/18 06/26/18 18:59 06:59 18:59 Intake Total 1200 / 1200 480 / 480 Balance 1200 / 1200 480 / 480 Weight 83 kg Intake: Oral 1200 / 1200 480 / 480 Other: # Voids 2 Weight On Admission 83 kg Narrative: GENERAL: 67-year-old elderly male patient, INAD. Awake and alert. Sitting in day room watching TV. SKIN: Venous stasis ulcers noted to bilateral lower extremities. There is chronic venous discoloration. +eschars noted on both lower extremities weeping drainage. HEAD: Atraumatic. Normocephalic. EYES: Pupils equal and round. No scleral icterus. No injection or drainage. ENT: No nasal bleeding or discharge. Mucous membranes pink and moist. NECK: Trachea midline. CARDIOVASCULAR: S1-S2, occasionally irregular. Unable to detect any murmurs rubs or gallops. CHEST: Left chest wall with dressing in place, zip tie suture in place, no evidence of infection. RESPIRATORY: No accessory muscle use. Clear to auscultation. Breath sounds equal bilaterally. GASTROINTESTINAL: Abdomen soft, non-tender, nondistended. MUSCULOSKELETAL: Extremities without clubbing, cyanosis, trace pretibial edema. No obvious deformities. NEUROLOGICAL: Awake, alert. Able to move all extremities spontaneously. Nonfocal deficits. Normal speech. PSYCHIATRIC: Calm and cooperative with exam. Delusional thinking. Results - Labs CBC & Chem 7: 06/19/18 18:10 06/19/18 18:10 Laboratory Results - last 24 hr 06/25/18 06/25/18 06/26/18 15:42 19:43 04:32 POC Glucose 211 H 193 H 194 H 06/26/18 06/26/18 07:39 11:31 POC Glucose 214 H 232 H Assessment and Plan - Plan Mr. Casey is a 67 y/o male with a history of hypertension, diabetes mellitus, CHF with an EF of 15 - 20% s/p recent AICD placement, and arthritis who was transferred from [facility] in [place] for admission to the med/ psych unit here for management of psychosis. Psychosis - Management per psychiatry Systolic CHF, not in acute decompensation BNP at [place] reported [id number] on admission to [place] [place] 06/11 progress notes from [place] indicate EF of 15 - 20% with moderate to severe MR and moderate TR -Continue on Lasix at decreased dose 20 mg twice daily. Monitor electrolytes. -Patient appears euvolemic on exam, continue to monitor for signs of fluid overload -recent AICD placement - He still has sutures in place. Unclear when this was done, patient is a poor historian. For now keep dressing in place, we have no other information. Unable to get reliable verification regarding when and where AICD was placed Hypertension, now hypotensive BP 93/57 -Hold losartan. Continue on carvedilol with hold parameters. -Monitor BP and adjust treatment accordingly Renal insufficiency No baseline labs for comparison -Avoid nephrotoxic agents -Monitor kidney function as indicated, repeat BMP in a.m. Diabetes Mellitus HgA1C 10.8 on 06/11 at [facility] Blood sugars with fair control, running low to mid 200s -Change to Levemir 15 units twice daily and add preprandial NovoLog 3 units TIDAC -Accu checks AC and HS and 0300 with low dose SS Novolog coverage -PRN hypoglycemia treatment protocol Bilateral LE wounds - appear chronic secondary to PVD Cellulitis BLE -consult wound care nurse -input appreciated. Wound care orders placed. Patient has been refusing wound care. -obtain wound cx left anterior lower leg wound -Start on Keflex 500mg QID, monitor for improvement -Consider vascular surgery consult DVT prophylaxis -continue Lovenox 40 mg subq q24h Discussed Condition With: patient, nursing staff, Dr. Mckeon
[2018-06-26] MEDS: Furosemide 20 MG Tablet PO SCH ×2 (15:31→17:29)
[2018-06-27] MEDS: Insulin NovoLOG Aspart Correctional Sugar Inj SQ SCH ×5 (04:28→21:37)
[2018-06-27] MEDS: risperiDONE 0.5 MG ODT PO SCH ×2 (08:30→21:09)
[2018-06-27] MEDS: Enoxaparin Inj 40 MG/0.4 ML Syringe SQ SCH (08:30)
[2018-06-27] MEDS: Famotidine 20 MG Tablet PO SCH ×2 (08:30→21:09)
[2018-06-27] MEDS: Furosemide 20 MG Tablet PO SCH ×2 (08:37→17:03)
[2018-06-27] MEDS ORDERED: Insulin Detemir Inj 1,000 UNIT/10 ML Vial SQ SCH ×2 (09:00→14:17)
[2018-06-27 10:57] LABS: Calcium 9.2 mg/dL (8.5-10.1); Carbon Dioxide 26.8 meq/L (21.0-32.0); Potassium 4.4 meq/L (3.5-5.1)
--- NOTE | 2018-06-27 14:37 | P.PN ---
Subjective Interval history: Follow-up on patient with bilateral lower extremity wounds, recent AICD placement, diabetes. Patient seen and examined. Patient denies any acute medical complaints. He has been refusing SALIMA wraps to BLEs. His wounds continue to drain. He denies any fever or chills. He denies any chest pain or shortness of breath. Physical Exam Vital signs: Vital Signs 06/26/18 17:50 06/27/18 05:21 Temperature 97.6 F 99.1 F Pulse Rate 80 77 Respiratory Rate 18 17 Blood Pressure 118/69 122/85 Pulse Oximetry 98 94 L Intake & Output 06/26/18 06/27/18 06/27/18 18:59 06:59 18:59 Intake Total 1520 / 1520 960 / 960 Balance 1520 / 1520 960 / 960 Intake: Oral 1520 / 1520 960 / 960 Other: # Voids 3 1 Narrative: GENERAL: 67-year-old elderly male patient, INAD. Awake and alert. Sitting in day room watching TV. Appears comfortable. SKIN: Venous stasis ulcers noted to bilateral lower extremities. There is chronic venous discoloration. +eschars noted on both lower extremities weeping drainage. Distal pulses not palpable. Bilateral feet warm. HEENT: Atraumatic. Normocephalic. Pupils equal and round. No scleral icterus. No injection or drainage. No nasal bleeding or discharge. Mucous membranes pink and moist. NECK: Trachea midline. CARDIOVASCULAR: S1-S2, occasionally irregular. Unable to detect any murmurs rubs or gallops. CHEST: Left chest wall with dressing in place, zip tie suture in place, no evidence of infection. RESPIRATORY: No accessory muscle use. Clear to auscultation. Breath sounds equal bilaterally. GASTROINTESTINAL: Abdomen soft, non-tender, nondistended. MUSCULOSKELETAL: Extremities without clubbing, cyanosis, trace pretibial edema. No obvious deformities. NEUROLOGICAL: Awake, alert. Able to move all extremities spontaneously. Nonfocal deficits. Normal speech. PSYCHIATRIC: Calm and cooperative with exam. Delusional grandiose thinking. Results - Labs CBC & Chem 7: 06/19/18 18:10 06/27/18 10:09 Laboratory Results - last 24 hr 06/26/18 06/26/18 06/27/18 16:25 20:01 01:59 Sodium Potassium Chloride Carbon Dioxide Anion Gap BUN Creatinine Estimated GFR POC Glucose 207 H 144 H 169 H Random Glucose Calcium 06/27/18 06/27/18 10:09 11:33 Sodium 140 Potassium 4.4 Chloride 104 Carbon Dioxide 26.8 Anion Gap 9 BUN 40 H Creatinine 1.56 H Estimated GFR 44 L POC Glucose 310 H Random Glucose 268 H Calcium 9.2 Microbiology 06/26/18 16:00 Abscess - Leg Gram Stain - Final Assessment and Plan - Plan Mr. Casey is a 67 y/o male with a history of hypertension, diabetes mellitus, CHF with an EF of 15 - 20% s/p recent AICD placement, and arthritis who was transferred from [facility] in [place] for admission to the med/ psych unit here for management of psychosis. Psychosis - Management per psychiatry Systolic CHF, not in acute decompensation BNP at [facility] reported [id number] on admission to [facility] 06/11 progress notes from [facility] indicate EF of 15 - 20% with moderate to severe MR and moderate TR -Continue on Lasix at decreased dose 20 mg twice daily. Monitor electrolytes. -start on low dose ACEI. Continue on BB. -Patient appears euvolemic on exam, continue to monitor for signs of fluid overload -recent AICD placement - He still has sutures in place. Unclear when this was done, patient is a poor historian. For now keep dressing in place, we have no other information. Unable to get reliable verification regarding when and where AICD was placed. Hypertension, now hypotensive BP 93/57 9/2 BP better today, now 122/85 -D/C losartan, start on low dose ACEI. Continue on carvedilol with hold parameters. -Monitor BP and adjust treatment accordingly Renal insufficiency No baseline labs for comparison Suspect Cr is at or near baseline -Avoid nephrotoxic agents -Monitor kidney function as indicated Diabetes Mellitus HgA1C 10.8 on 06/11 at [facility] Blood sugars with fair control, running low to mid 200s -Patient has been refusing ISS and preprandial insulin intermittently. Will increase Levemir to 18u BID. Continue on preprandial NovoLog 3 units TIDAC. -Accu checks AC and HS and 0300 with low dose SS Novolog coverage -PRN hypoglycemia treatment protocol Bilateral LE wounds - appear chronic secondary to PVD Cellulitis BLE -consult wound care nurse -input appreciated. Wound care orders placed. Patient has been refusing wound care. -obtain wound cx left anterior lower leg wound/pending -Started on Keflex 500mg QID, monitor for improvement -Vascular surgery consult, appreciate assistance -Podiatry consult, appreciate assistance DVT prophylaxis -continue Lovenox 40 mg subq q24h Discussed Condition With: patient, nursing staff, Dr. Daigle
[2018-06-28] MEDS: Insulin NovoLOG Aspart Correctional Sugar Inj SQ SCH ×6 (03:11→22:18)
--- NOTE | 2018-06-28 08:46 | P.PNPSY ---
Subjective Remarks: This is a late entry from 06/27/18. Reviewed electronic medical records and discussed case with staff. Follow-up was conducted in the hallway. Patient continues to be very confused. He is discharged focused. He was advised that he has to stay as is positive for MRSA. He informed staff that he would like to go to "hyperbaric chamber" and that he has money for it. Mental Status Examination Appearance: Appropriate Consciousness: Alert Orientation: Person, Place, Date/Time (Vaguely) Motor Activity: Normal gait Speech: Unremarkable Language: Adequate Fund of Knowledge: Inadequate Attention and Concentration: Easily distracted Memory: Impaired Mood: Other (Euthymic to mildly irritable) Affect: Other (Slight increased range and intensity) Thought Process & Associations: Circumstantial, Disorganized Thought Content: Preoccupations (With his vehicle and to be discharged), Delusional Hallucination Type: None Delusion Type: Bizarre, Paranoid Suicidal Ideation: No Suicidal Plan: No Suicidal Intention: No Homicidal Ideation: No Homicidal Plan: No Homicidal Intention: No Insight: Poor Judgment: Poor Assessment and Plan - Assessment (1) Unspecified psychosis Code(s): F29 - Unspecified psychosis not due to a substance or known physiological condition Status: Acute - Plan Plan: Patient will be reevaluated tomorrow by the attending psychiatrist. Continue with current treatment plan. Justification for Continued Inpatient Stay: Moving this patient to a less restrictive environment would likely result in decompensation. Request Healthcare Surrogate/Guardian Advocate?: Yes (1) Unspecified psychosis Qualifiers: Psychosis type: brief psychotic disorder Qualified Code(s): F23 - Brief psychotic disorder
[2018-06-28] MEDS: Lisinopril 5 MG Tablet PO SCH (08:59)
[2018-06-28] MEDS: risperiDONE 0.5 MG ODT PO SCH (08:59)
[2018-06-28] MEDS: Famotidine 20 MG Tablet PO SCH ×2 (09:00→21:00)
[2018-06-28] MEDS: Insulin Detemir Inj 1,000 UNIT/10 ML Vial SQ SCH ×2 (09:00→22:09)
[2018-06-28] MEDS: Enoxaparin Inj 40 MG/0.4 ML Syringe SQ SCH (09:00)
[2018-06-28] MEDS: Furosemide 20 MG Tablet PO SCH ×2 (09:00→17:29)
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
--- NOTE | 2018-06-28 09:56 | P.PN ---
Subjective Interval history: Follow-up on patient with bilateral lower extremity wounds, recent AICD placement, diabetes. Patient seen and examined. She has poor historian secondary to psychosis. Patient denies any acute medical complaints. Denies any fever or chills. Denies any chest pain or shortness of breath. He is still refusing wound care/SALIMA wraps bilateral lower extremities. Physical Exam Vital signs: Vital Signs 06/27/18 17:52 06/28/18 05:58 Temperature 98.3 F 97.9 F Pulse Rate 78 91 H Respiratory Rate 18 16 Blood Pressure 126/78 138/86 Pulse Oximetry 95 96 Intake & Output 06/27/18 06/28/18 06/28/18 18:59 06:59 18:59 Intake Total 1560 / 1560 340 / 340 360 / 360 Balance 1560 / 1560 340 / 340 360 / 360 Intake: Oral 1560 / 1560 240 / 240 360 / 360 Oral Supplement 100 / 100 Other: # Voids 3 2 Narrative: GENERAL: 67-year-old elderly male patient, INAD. Awake and alert. Ambulating without any difficulty in his room. SKIN: Venous stasis changes BLEs. +eschars noted on both lower extremities weeping drainage. Distal pulses not palpable. Bilateral feet warm. HEENT: Atraumatic. Normocephalic. Pupils equal and round. No scleral icterus. No injection or drainage. No nasal bleeding or discharge. Mucous membranes pink and moist. NECK: Trachea midline. CARDIOVASCULAR: S1-S2, occasionally irregular. Unable to detect any murmurs rubs or gallops. CHEST: Left chest wall with dressing in place, zip tie suture in place, no evidence of infection. RESPIRATORY: No accessory muscle use. Clear to auscultation. Breath sounds equal bilaterally. GASTROINTESTINAL: Abdomen soft, non-tender, nondistended. MUSCULOSKELETAL: Extremities without clubbing, cyanosis, trace pretibial edema. No obvious deformities. NEUROLOGICAL: Awake, alert. Able to move all extremities spontaneously. Nonfocal deficits. Normal speech. PSYCHIATRIC: Calm and cooperative with exam. Delusional grandiose thinking. Results - Labs CBC & Chem 7: 06/19/18 18:10 06/27/18 10:09 Laboratory Results - last 24 hr 06/27/18 06/27/18 06/27/18 10:09 11:33 16:26 Sodium 140 Potassium 4.4 Chloride 104 Carbon Dioxide 26.8 Anion Gap 9 BUN 40 H Creatinine 1.56 H Estimated GFR 44 L POC Glucose 310 H 110 Random Glucose 268 H Calcium 9.2 06/27/18 06/28/18 06/28/18 20:44 03:05 06:11 Sodium Potassium Chloride Carbon Dioxide Anion Gap BUN Creatinine Estimated GFR POC Glucose 200 H 190 H 182 H Random Glucose Calcium Microbiology 06/26/18 16:00 Abscess - Leg Gram Stain - Final 06/26/18 16:00 Abscess - Leg Wound Culture - Preliminary S. aureus MRSA Assessment and Plan - Plan Mr. Casey is a 67 y/o male with a history of hypertension, diabetes mellitus, CHF with an EF of 15 - 20% s/p recent AICD placement, and arthritis who was transferred from [facility] in [place] for admission to the med/ psych unit here for management of psychosis. Psychosis - Management per psychiatry Systolic CHF, not in acute decompensation BNP at [facility] reported [id number] on admission to [facility] 06/11 progress notes from [facility] indicate EF of 15 - 20% with moderate to severe MR and moderate TR -Continue on Lasix at decreased dose 20 mg twice daily. Monitor electrolytes. -started on low dose ACEI. Continue on BB. -Patient appears euvolemic on exam, continue to monitor for signs of fluid overload -recent AICD placement - He still has sutures in place. Unclear when this was done, patient is a poor historian. For now keep dressing in place, we have no other information. Unable to get reliable verification regarding when and where AICD was placed. Hypertension Hypotension, improved -Continue on lisinopril 5 mg daily and carvedilol with hold parameters. -Monitor BP and adjust treatment accordingly Renal insufficiency No baseline labs for comparison Suspect Cr is at or near baseline -Avoid nephrotoxic agents -Monitor kidney function as indicated Diabetes Mellitus HgA1C 10.8 on 06/11 at [facility] Blood sugars with fair control, running high 100s/low 200 -Patient has been refusing ISS and preprandial insulin intermittently. Increase Levemir to 20u BID. Hold preprandial insulin for now. -Accu checks with low dose SS Novolog coverage -PRN hypoglycemia treatment protocol Bilateral LE stasis dermatitis - appear chronic secondary to suspected PVD Open wounds and cellulitis BLE, MRSA -consult wound care nurse -input appreciated. Wound care orders placed. Patient has been refusing wound care. -Wound cx + MRSA. Started on po Doxycycline. ID consulted, concern if po abx sufficient. -Vascular surgery following, appreciate assistance. ABIs ordered/will follow up on results. -Podiatry consult, appreciate assistance DVT prophylaxis -continue Lovenox 40 mg subq q24h Discussed Condition With: patient, nursing staff, Dr. Daigle Discharge Planning: discharge disposition per primary team
--- NOTE | 2018-06-28 15:55 | P.PNPSY ---
Subjective Remarks: Patient seen in his room today with nurse Marce, chart reviewed, patient compliant medication. Patient is still somewhat confused disoriented wanting now to go to the [facility] swing get some sort of barium treatment for his legs. We will increase Resporal to Review of Systems All other systems reviewed negative except as stated in HPI Mental Status Examination Appearance: Appropriate Consciousness: Alert Orientation: Person, Place, Date/Time (Vaguely) Motor Activity: Normal gait Speech: Unremarkable Language: Adequate Fund of Knowledge: Inadequate Attention and Concentration: Easily distracted Memory: Impaired Mood: Other (Euthymic to mildly irritable) Affect: Other (Slight increased range and intensity) Thought Process & Associations: Circumstantial, Disorganized Thought Content: Preoccupations (With his vehicle and to be discharged), Delusional Hallucination Type: None Delusion Type: Bizarre, Paranoid Suicidal Ideation: No Suicidal Plan: No Suicidal Intention: No Homicidal Ideation: No Homicidal Plan: No Homicidal Intention: No Insight: Poor Judgment: Poor Assessment and Plan - Assessment (1) Unspecified psychosis Code(s): F29 - Unspecified psychosis not due to a substance or known physiological condition Status: Acute - Plan Plan: Patient continues confused somewhat delusional and grandiose Justification for Continued Inpatient Stay: At this time patient would decompensate a place to a lower level of care Discharge Planning: To be determined Request Healthcare Surrogate/Guardian Advocate?: Yes (1) Unspecified psychosis Qualifiers: Psychosis type: brief psychotic disorder Qualified Code(s): F23 - Brief psychotic disorder
[2018-06-28] MEDS: Collagenase Oint 30 GM Tube TOPICAL SCH (17:38)
--- NOTE | 2018-06-28 18:09 | MB ---
cc: Didi Rizo DPM DATE: 06/28/2018 REASON FOR CONSULTATION: Bilateral leg wounds. HISTORY OF PRESENT ILLNESS: The patient was seen at bedside accompanied by his nurse, but little history is ascertained given his underlying psychosis. REVIEW OF SYSTEMS: Unable to obtain. PAST MEDICAL HISTORY: Per medical record, CAD, CHF, DM, hypertension. PAST SURGICAL HISTORY: ICD, left total knee, bilateral hips. ACTIVE MEDICATIONS: 1. Acetaminophen. 2. Carvedilol. 3. Dextrose. 4. Docusate. 5. Doxycycline. 6. Enoxaparin. 7. Famotidine. 8. Finasteride. 9. Glucagon. 10. Insulin. 11. Lisinopril. 12. Lorazepam. 13. Risperidone. LABORATORY DATA: The most recent on 06/27/2018, sodium 140, potassium 4.4, creatinine 1.56. WBC 7.3, platelets 236. PHYSICAL EXAMINATION: Bilateral shins with fibrotic serous draining ulcers. There is no exposed bone or tendon. The right is approximately 4 x 4. The left is approximately 2 x 2. DP and PT nonpalpable. Lower extremities warm to warm. PLAN: Local wound care with Adaptic, Santyl, bilateral dry sterile dressings, change daily. Keep elevated. He is currently pending blood flow studies with Dr. Jackson. No surgical intervention per podiatry plans. The patient can be discharged to wound care and reconsult podiatry if any additional intervention needed. Didi Rizo DPM SR/tiffany , 05:32 PM , 05:40 PM
--- NOTE | 2018-06-28 19:32 | P.CONID ---
History of Present Illness Service: ID Consult date: 06/28/18 Requesting Physician: Annette Snow Reason for Consult: MRSA BLE wound infection, cellulitis Primary Care Provider: UNKNOWN Chief Complaint: Transferred from [place] for Psychosis History of Present Illness: 67 yo male admitted to [facility] after [place] c/o BL wounds present for few months Pt has h/o chronic BLE edema and apparently CHF He is a poor historian, history mainly thru th chart ab=nfd other providers He states hat his wounds are tender He finds them improving Clx are positive for MRSA He has low grade fever up to 100; no leukocytosis + endorses h/o PE Review of Systems All other systems reviewed negative except as stated in HPI PMFSH - History History Provided By: Patient, Medical Record - Medical History Medical History: Medical History (Last Reviewed 06/29/18 @ 05:07 by Alba Hodge MD) CAD (coronary artery disease) CHF (congestive heart failure) Diabetes mellitus Hypertension - Surgical History Surgical History: Surgical History (Last Reviewed 06/29/18 @ 05:07 by Alba Hodge MD) History of implantable cardioverter-defibrillator (ICD) placement History of left knee replacement Hx of bilateral hip replacements - Family History Family History: Family History (Last Reviewed 06/29/18 @ 05:07 by Alba Hodge MD) Son Family history of drug abuse - Tobacco History Smoking Status: Never smoker - Travel History Recent Travel in the [facility] Within the Last 8 Weeks: Yes Medications and Allergies Active Medications: Active Medications Acetaminophen (Tylenol) 650 mg PO Q4H PRN PRN Reason: Pain 1-5 or Temp >101F Last Admin: 06/19/18 22:06 Dose: 650 mg Al Hydrox/Mg Hydrox/Simethicone (Mag-Al Plus Susp Liq) 30 ml PO Q6H PRN PRN Reason: DYSPEPSIA Al Hydroxide/Mg Hydroxide (Milk Of Magnesia Liq) 30 ml PO DAILY PRN PRN Reason: Mild Constipation Aspirin (Aspirin Chew) 81 mg PO DAILY [facility] Last Admin: 06/28/18 08:59 Dose: 81 mg Carvedilol (Coreg) 3.125 mg PO BID [facility] Last Admin: 06/28/18 08:59 Dose: 3.125 mg Collagenase (Santyl Oint) 1 applicatio TOPICAL DAILY [facility] Last Admin: 06/28/18 17:38 Dose: Not Given Dextrose (D50w Vial) 50 ml IV.PUSH UNSCH PRN PRN Reason: PER HYPOGLYCEMIA PROTOCOL Docusate Sodium (Colace) 100 mg PO BID PRN PRN Reason: CONSTIPATION Doxycycline Hyclate (Vibratab) 100 mg PO Q12HR [facility] Last Admin: 06/28/18 08:59 Dose: 100 mg Enoxaparin Sodium (Lovenox Inj) 40 mg SQ DAILY [facility] Last Admin: 06/28/18 09:00 Dose: 40 mg Famotidine (Pepcid) 20 mg PO BID [facility] Last Admin: 06/28/18 09:00 Dose: 20 mg Furosemide (Lasix) 20 mg PO BID@0900,1800 [facility] Last Admin: 06/28/18 17:29 Dose: 20 mg Glucagon (Glucagon Inj) 1 mg OTHER PRN PRN PRN Reason: for Hypoglycemia Protocol Insulin Aspart (Novolog Insulin Correctional Sugar Inj) 0 unit SQ ACHS AND 3AM [facility]; Protocol Last Admin: 06/28/18 17:30 Dose: Not Given Insulin Aspart (Novolog Inj) 3 units SQ TIDAC [facility] Last Admin: 06/27/18 16:42 Dose: 3 units Insulin Detemir (Levemir Inj) 20 unit SQ BID [facility] Last Admin: 06/28/18 09:00 Dose: 20 unit Lisinopril (Prinivil) 5 mg PO DAILY [facility] Last Admin: 06/28/18 08:59 Dose: 5 mg Lorazepam (Ativan) 0.5 mg SL TID PRN PRN Reason: AGITATION Risperidone (Risperdal M-Tab) 1 mg PO BID [facility] Allergies Allergy/AdvReac Type Severity Reaction Status Date / Time No Known Allergies Allergy Verified 06/17/18 17:36 Home Medications Medication Instructions Recorded Confirmed Type acetaminophen 650 mg PO Q8H PRN 06/17/18 06/17/18 History aspirin 81 mg PO DAILY 06/17/18 06/17/18 History cephalexin 500 mg PO TID 06/17/18 06/17/18 History docusate sodium 100 mg PO PRN 06/17/18 06/17/18 History doxycycline monohydrate 100 mg PO BID 06/17/18 06/17/18 History enoxaparin [Lovenox] 40 mg SUB-Q DAILY 06/17/18 06/17/18 History famotidine 20 mg PO BID 06/17/18 06/17/18 History furosemide 40 mg PO BID 06/17/18 06/17/18 History furosemide 40 mg PO DAILY 06/17/18 06/17/18 History insulin glargine [Lantus U-100 30 unit SUB-Q DAILY 06/17/18 06/17/18 History Insulin] insulin lispro 1 sliding scale dose SUB-Q UD 06/17/18 06/17/18 History insulin lispro 10 unit SUB-Q TID 06/17/18 06/17/18 History lorazepam 0.5 mg SUBLINGUAL TID PRN 06/17/18 06/17/18 History losartan 25 mg PO DAILY 06/17/18 06/17/18 History nitroglycerin 0.4 mg SUBLINGUAL Q5-15M PRN 06/17/18 06/17/18 History Exam Vital signs: Vital Signs 06/28/18 05:58 06/28/18 18:18 Temperature 97.9 F 100.1 F H Pulse Rate 91 H 77 Respiratory Rate 16 17 Blood Pressure 138/86 114/61 Pulse Oximetry 96 95 Intake & Output 06/28/18 06/28/18 06/29/18 06:59 18:59 06:59 Intake Total 340 / 340 960 / 960 Balance 340 / 340 960 / 960 Intake: Oral 240 / 240 960 / 960 Oral Supplement 100 / 100 Other: # Voids 2 - Constitutional no acute distress, average body habitus - Routine HEENT Exam Head: Present: normocephalic, atraumatic Eye: Present: EOMI, PERRL ENT: Present: mucous membranes moist, oropharynx clear Comments: poor dentition - Routine Neck Exam Present: supple, full ROM - Routine Chest/Breast/Axilla Exam Chest wall: Present: pacemaker (on L chest , stitches in place, no edema or erythema, well approximated incition) - Routine Respiratory Exam Present: decreased breath sounds, CTA bilaterally - Routine Cardiovascular Exam Present: RRR, S1, S2 - Routine Abdominal Exam Present: soft, normoactive bowel sounds Comments: not tender not distended, no organo megaly, n masses - Routine Extremities Exam Comments: no cyanosis , no clubbing + mild edema + brick color erythema and chronic appearing b/ ankle hyperpygmentation B/l morales ulcers, R sided appear > 50% granulated, 2 larger ulcers on L morales, ankle are with nearly 100% necrotic bed no ascending lymphangitis or lymphadenopathy - Routine Skin Exam Present: intact, dry, warm - Routine Neurological Exam Present: alert, oriented X3, CN II-XII intact, moving all extremities, vision grossly intact, hearing grossly intact, normal speech - Routine Psychiatric Exam Present: normal affect, cooperative Results - Labs CBC & Chem 7: 06/19/18 18:10 06/27/18 10:09 Labs: Laboratory Results - last 24 hr 06/27/18 06/28/18 06/28/18 20:44 03:05 06:11 POC Glucose 200 H 190 H 182 H 06/28/18 19:28 POC Glucose 231 H Assessment and Plan - Plan B/L low extremeties cellulitis B/l ankle wounds with stigmata of poor healing MRSA infection of BLE wounds, on appropriate abx (doxycyline) CHF and chronic BLE edema cont po abx treatment agree with vascular w/u Distribution of the wounds is more c/w venostasis wounds, however now edema is contrlled and if pt wounds still not healing PVD w/u will be needed will follow ELIZABETH results
[2018-06-28] MEDS: risperiDONE 1 MG ODT PO SCH (21:10)
[2018-06-29] MEDS: Insulin NovoLOG Aspart Correctional Sugar Inj SQ SCH ×5 (03:00→21:10)
--- NOTE | 2018-06-29 08:39 | P.PN ---
Subjective Interval history: Follow-up on patient with bilateral lower extremity wounds, recent AICD placement, diabetes. Patient seen and examined. Patient appears more irritable this morning. States he was kidnapped. Asking why we are refusing to send him to the [facility]. Tells me he is completely healthy and does not need to be here. He denies any acute medical complaints. Denies any chest pain or shortness of breath. Denies any fever or chills. ABIs ordered by vascular team. Physical Exam Vital signs: Vital Signs 06/28/18 18:18 06/29/18 06:00 Temperature 100.1 F H 99.5 F Pulse Rate 77 89 Respiratory Rate 17 17 Blood Pressure 114/61 129/72 Pulse Oximetry 95 93 L Intake & Output 06/28/18 06/29/18 06/29/18 18:59 06:59 18:59 Intake Total 960 / 960 580 / 580 Balance 960 / 960 580 / 580 Intake: Oral 960 / 960 480 / 480 Oral Supplement 100 / 100 Other: # Voids 2 Narrative: GENERAL: 67-year-old elderly male patient, INAD. Awake and alert. Sitting on side of bed eating breakfast. SKIN: Venous stasis changes BLEs. +eschars noted on both lower extremities weeping drainage, dressed in kerlex. Distal pulses not palpable. Bilateral feet warm. HEENT: Atraumatic. Normocephalic. Pupils equal and round. No scleral icterus. No injection or drainage. No nasal bleeding or discharge. Mucous membranes pink and moist. NECK: Trachea midline. CARDIOVASCULAR: S1-S2, occasionally irregular. Unable to detect any murmurs rubs or gallops. CHEST: Left chest wall with dressing in place, zip tie suture in place, no evidence of infection. RESPIRATORY: No accessory muscle use. Clear to auscultation. Breath sounds equal bilaterally. GASTROINTESTINAL: Abdomen soft, non-tender, nondistended. MUSCULOSKELETAL: Extremities without clubbing, cyanosis, trace pretibial edema. No obvious deformities. NEUROLOGICAL: Awake and alert. Able to move all extremities spontaneously. No focal neurologic findings appreciated. Normal speech. PSYCHIATRIC: Mildly irritable. Calm and cooperative with exam. Delusional grandiose thinking. Results - Labs CBC & Chem 7: 06/19/18 18:10 06/27/18 10:09 Laboratory Results - last 24 hr 06/28/18 06/29/18 06/29/18 19:28 03:32 06:04 POC Glucose 231 H 145 H 164 H 06/29/18 07:32 POC Glucose 155 H Microbiology 06/26/18 16:00 Abscess - Leg Gram Stain - Final 06/26/18 16:00 Abscess - Leg Wound Culture - Final S. aureus MRSA Assessment and Plan - Plan Mr. Casey is a 67 y/o male with a history of hypertension, diabetes mellitus, CHF with an EF of 15 - 20% s/p recent AICD placement, and arthritis who was transferred from [facility] in [place] for admission to the med/ psych unit here for management of psychosis. Psychosis - Management per psychiatry Systolic CHF, not in acute decompensation BNP at [facility] reported [id number] on admission to [facility] 06/11 progress notes from [facility] indicate EF of 15 - 20% with moderate to severe MR and moderate TR -Continue on Lasix at decreased dose 20 mg twice daily. Monitor electrolytes. -started on low dose ACEI, continue. Continue on BB. -Patient appears euvolemic on exam, continue to monitor for signs of fluid overload -recent AICD placement - He still has sutures in place. Unclear when this was done, patient is a poor historian. For now keep dressing in place, we have no other information. Unable to get reliable verification regarding when and where AICD was placed. Hypertension Hypotension, improved -Continue on lisinopril 5 mg daily and carvedilol with hold parameters. -Monitor BP and adjust treatment accordingly Renal insufficiency No baseline labs for comparison Suspect Cr is at or near baseline -Avoid nephrotoxic agents -Monitor kidney function as indicated Diabetes Mellitus HgA1C 10.8 on 06/11 at [facility] Blood sugars with fair control, running high 100s/low 200 -Patient has been refusing ISS and preprandial insulin intermittently. Increase Levemir to 22u BID. Discontinue preprandial insulin. -Accu checks with low dose SS Novolog coverage -PRN hypoglycemia treatment protocol Bilateral LE stasis dermatitis - appear chronic secondary to suspected PVD Open wounds and cellulitis BLE, MRSA Wound cx + MRSA. Started on po Doxycycline. -ID, Vascular surgery and podiatry following, appreciate assistance. Per ID , continue with Doxycycline po. Per Podiatry, no surgical intervention, wound care orders placed. -ABIs ordered/will follow up on results. DVT prophylaxis -continue Lovenox 40 mg subq q24h Discussed Condition With: patient, nursing staff, Dr. Madrid Discharge Planning: discharge disposition per primary team
[2018-06-29] MEDS: Insulin Detemir Inj 1,000 UNIT/10 ML Vial SQ SCH ×2 (09:38→22:04)
[2018-06-29] MEDS: Enoxaparin Inj 40 MG/0.4 ML Syringe SQ SCH (09:42)
[2018-06-29] MEDS: Lisinopril 5 MG Tablet PO SCH (09:44)
[2018-06-29] MEDS: Famotidine 20 MG Tablet PO SCH ×2 (09:44→21:10)
[2018-06-29] MEDS: Furosemide 20 MG Tablet PO SCH ×2 (09:45→17:49)
[2018-06-29] MEDS: risperiDONE 1 MG ODT PO SCH ×2 (09:45→21:10)
[2018-06-29] MEDS: Collagenase Oint 30 GM Tube TOPICAL SCH ×2 (10:43→14:08)
--- NOTE | 2018-06-29 12:47 | P.TTN ---
- Patient Problems Problems: 1. Discharge planning 2. Medication compliance 3. Knowledge deficit 4. Lack of coping skills - Progress Toward Goals Provider Present: Dr. Inessa Aldridge, Dr. Karissa Randle Provider Input: Patient is being treated medically, and stablizing with treatment. Pt is delusional. There is no one to sign for medication. He had recent heart surgery. 06/23/18: Pt is expected to attend court hearing 06/24/18 for legal considerations. Nurse(s) Present: More Nurse Input: 06/29/2018; pateint is eating meals and taking his medications, no behavior. Pt is med compliant although he is refusing care for his ulcered wounds. He is [place] oriented, with cognitive deficits, and desires to transfer to the [place] hospital. 06/23/18: Pt continues to require medical care for wounds, he continues to express desire to return to [place] hospital. Psychiatric Counselors Present: Kiara Evans LCSW, Chad Brambila Jr., [facility], Debbie Hoff, [facility], Other Psychiatric Therapist Input: Counselor will contact the following [place] providers for placement: Jerilyn Arevalo, with [facility] , [place] ([facility]) Tiffany, with the homeless [place] program and Andres with the [facility]- . Pt is grandiose and delusional. He [facility] the [facility]. [facility] is [facility] the [facility] [place]. 06/23/18: Pt continues to meet criteria, expected discharge may include return to [facility]. Per Debbie's contact with family, family related housing is not an option. Group Spec/RT/OT/CRUZ Present: Huyen Sharp, MARCY, ANTHONY Arroyo, Adriano Macias, OT, ANTHONY Avery Group Spec/RT/OT/CRUZ Input: Patient is attending select groups and activities. Pt does not participate in groups. 06/23/18: Pt does not attend groups, per pt refusals. - Discharge Plan Per medical staff; Pt expected to attend court hearing on 06/24/18, pt's D/C plan option is to return pt to [facility], pending court approval. - Documentation Scribe: Adriano Macias MS, OTR Teaching Recipient: Patient
--- NOTE | 2018-06-29 14:59 | P.PNPSY ---
Subjective Remarks: Patient seen in his room with nurse Ml, chart reviewed, discussed also with patient's counselor. Patient calm cooperative and pleasant compliant with medications continues diffusely confused. Though now he appears willing to look at the detention that is approved by the [place]. It appears we have located patient's vehicle A 2017 Corvette in the [facility]. For now continue treatment. Patient denies suicidality denies voices Review of Systems All other systems reviewed negative except as stated in HPI Mental Status Examination Appearance: Appropriate Consciousness: Alert Orientation: Person, Place, Date/Time (Vaguely) Motor Activity: Normal gait Speech: Unremarkable Language: Adequate Fund of Knowledge: Inadequate Attention and Concentration: Easily distracted Memory: Impaired Mood: Other (Euthymic to mildly irritable) Affect: Other (Slight increased range and intensity) Thought Process & Associations: Circumstantial, Disorganized Thought Content: Preoccupations (With his vehicle and to be discharged), Delusional Hallucination Type: None Delusion Type: Bizarre, Paranoid Suicidal Ideation: No Suicidal Plan: No Suicidal Intention: No Homicidal Ideation: No Homicidal Plan: No Homicidal Intention: No Insight: Poor Judgment: Poor Assessment and Plan - Assessment (1) Unspecified psychosis Code(s): F29 - Unspecified psychosis not due to a substance or known physiological condition Status: Acute - Plan Plan: Patient calm cooperative compliant medications. 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
--- NOTE | 2018-06-29 15:07 | ECHRPT ---
EXAM DATE: 06/29/2018 11:59 AM EDT AGE/SEX: 67 years / Male INDICATIONS: BILATERAL LOWER EXTREMITY WOUNDS CLINICAL DATA: This is the patient's initial encounter. Patient reports that signs and symptoms have been present for 4 - 6 months and indicates a pain score of 5/10. MEDICAL/SURGICAL HISTORY: . CAD, CHF, DIABETES, HYPERTENSION . ICD PLACEMENT, LEFT KNEE REPLAC EMENT, BILATERAL HIP REPLACEMENT COMPARISON: No prior exams available for comparison. TECHNIQUE: Four-cuff ankle and brachial pressures were obtained. Pulse cuff waveform tracings of the ankles were recorded, and ankle-brachial indices were calculated. PRESSURES (mmHg): Brachial (arm) : RIGHT: 129, LEFT: 134 Ankle : RIGHT: CNO >220, LEFT: CNO >220 Toe : RIGHT: 53, LEFT: 62 TBI : RIGHT: 0.40, LEFT: 0.46 FINDINGS: Pulsed-Cuff Waveform: Irregular dampened waveforms. Other: None. CONCLUSION: 1. Ankle-brachial indices could not be obtained. 2. Mild to moderately decreased toe brachial indices bilaterally, right greater than left. Consider CT angiography for better evaluation. Electronically signed by: Jesse Wilson MD 06/29/2018 3:06 PM EDT
[2018-06-30] MEDS: Insulin NovoLOG Aspart Correctional Sugar Inj SQ SCH ×5 (03:54→21:49)
[2018-06-30] MEDS: Lisinopril 5 MG Tablet PO SCH (09:34)
[2018-06-30] MEDS: risperiDONE 1 MG ODT PO SCH (09:34)
[2018-06-30] MEDS: Insulin Detemir Inj 1,000 UNIT/10 ML Vial SQ SCH ×2 (09:35→21:48)
[2018-06-30] MEDS: Enoxaparin Inj 40 MG/0.4 ML Syringe SQ SCH (09:35)
[2018-06-30] MEDS: Famotidine 20 MG Tablet PO SCH ×2 (09:37→21:50)
[2018-06-30] MEDS: Furosemide 20 MG Tablet PO SCH ×2 (09:37→17:34)
--- NOTE | 2018-06-30 10:38 | P.PNPSY ---
Subjective Remarks: Patient seen in his room with nurse Bryan, patient somewhat irritable today showing less insight. Stating that he has his mind of the bank is ready to make a down payment on a house in [place]. Patient does not know why he was stopped by the police. Says she was still learning how to drive his car. We did discuss with him our efforts to find a [facility] approved intermediate for him perhaps in [place]. He still is somewhat willing to do that. For now will increase his Resporal to 1 mg a.m. 2 mg at bedtime Review of Systems All other systems reviewed negative except as stated in HPI Mental Status Examination Appearance: Appropriate Consciousness: Alert Orientation: Person, Place, Date/Time (Vaguely) Motor Activity: Normal gait Speech: Unremarkable Language: Adequate Fund of Knowledge: Inadequate Attention and Concentration: Easily distracted Memory: Impaired Mood: Other (Euthymic to mildly irritable) Affect: Other (Slight increased range and intensity) Thought Process & Associations: Circumstantial, Disorganized Thought Content: Preoccupations (With his vehicle and to be discharged), Delusional Hallucination Type: None Delusion Type: Bizarre, Paranoid Suicidal Ideation: No Suicidal Plan: No Suicidal Intention: No Homicidal Ideation: No Homicidal Plan: No Homicidal Intention: No Insight: Poor Judgment: Poor Assessment and Plan - Assessment (1) Unspecified psychosis Code(s): F29 - Unspecified psychosis not due to a substance or known physiological condition Status: Acute - Plan Plan: Patient continues delusional somewhat psychotic, with little insight. She medication adjustments above Justification for Continued Inpatient Stay: At this time patient would decompensate if placed in a lower level of care Discharge Planning: To be determined Request Healthcare Surrogate/Guardian Advocate?: Yes (1) Unspecified psychosis Qualifiers: Psychosis type: brief psychotic disorder Qualified Code(s): F23 - Brief psychotic disorder
--- NOTE | 2018-06-30 11:04 | P.TTN ---
- Patient Problems Problems: 1. Discharge planning 2. Medication compliance 3. Knowledge deficit 4. Lack of coping skills - Progress Toward Goals Provider Present: Dr. Inessa Aldridge Provider Input: 06/30/2018; patient can be dc to [facility] setting when medically cleared. Patient is being treated medically, and stablizing with treatment. Pt is delusional. There is no one to sign for medication. He had recent heart surgery. 06/23/18: Pt is expected to attend court hearing 06/24/18 for legal considerations. Nurse(s) Present: More Nurse Input: 06/30/2018; patient is eating and taking meds. 06/29/2018; pateint is eating meals and taking his medications, no behavior. Pt is med compliant although he is refusing care for his ulcered wounds. He is [place] oriented , with cognitive deficits, and desires to transfer to the [place] hospital. 06/23/18 : Pt continues to require medical care for wounds, he continues to express desire to return to [place] hospital. Psychiatric Counselors Present: Debbie Hoff [facility], Other Psychiatric Therapist Input: 06/30/2018; patient will call [facility] long term to set patient up with tem housing . Counselor will contact the following [place] providers for placement: Jerilyn Arevalo, with [facility] [phone], [place] ([facility]) Tiffany, with the homeless [place] program [phone] and Andres with the [facility]- . Pt is grandiose and delusional. He is covered 90% through the [place]. He is [facility] the [facility] [place]. 06/23/18: Pt continues to meet criteria, expected discharge may include return to [facility]. Per Debbie's contact with family, family related housing is not an option. Group Spec/RT/OT/CRUZ Present: MARCY Mejia Group Spec/RT/OT/CRUZ Input: 06/30/2018; patient has been unable to attend groups due to medical. Patient is attending select groups and activities. Pt does not participate in groups. 06/23/18: Pt does not attend groups, per pt refusals. - Discharge Plan Per medical staff; Pt expected to attend court hearing on 06/24/18, pt's D/C plan option is to return pt to [facility], pending court approval. - Documentation Scribe: Adriano Macias MS, OTR Teaching Recipient: Patient
--- NOTE | 2018-06-30 12:33 | P.PN ---
Subjective Interval history: Follow-up on patient with bilateral lower extremity wounds, recent AICD placement, diabetes. Patient seen and examined. Patient states he is doing well. He has no medical complaints. He denies any cough, dyspnea or shortness of breath. He denies any fever or chills. Physical Exam Vital signs: Vital Signs 06/29/18 18:00 06/30/18 06:00 Temperature 98 F 99.8 F H Pulse Rate 89 82 Respiratory Rate 18 17 Blood Pressure 123/75 128/77 Pulse Oximetry 94 L 98 Intake & Output 06/29/18 06/30/18 06/30/18 18:59 06:59 18:59 Intake Total 1680 / 1680 340 / 340 240 / 240 Balance 1680 / 1680 340 / 340 240 / 240 Intake: Oral 1680 / 1680 240 / 240 240 / 240 Oral Supplement 100 / 100 Other: # Voids 3 2 Narrative: GENERAL: 67-year-old elderly male patient, INAD. Awake and alert. Appears comfortable. SKIN: Venous stasis changes BLEs. +eschars noted on both lower extremities weeping drainage, dressed in kerlex. Distal pulses not palpable. Bilateral feet warm. HEENT: Atraumatic. Normocephalic. Pupils equal and round. No scleral icterus. No injection or drainage. No nasal bleeding or discharge. Mucous membranes pink and moist. NECK: Trachea midline. CARDIOVASCULAR: S1-S2, occasionally irregular. Unable to detect any murmurs rubs or gallops. CHEST: Left chest wall with dressing in place, zip tie suture in place, no evidence of infection. RESPIRATORY: No accessory muscle use. Clear to auscultation. Breath sounds equal bilaterally. GASTROINTESTINAL: Abdomen soft, non-tender, nondistended. MUSCULOSKELETAL: Extremities without clubbing, cyanosis, trace pretibial edema. No obvious deformities. NEUROLOGICAL: Awake and alert. Able to move all extremities spontaneously. No focal neurologic findings appreciated. Normal speech. PSYCHIATRIC: Calm and cooperative with exam. Delusional grandiose thinking. Results - Labs CBC & Chem 7: 06/19/18 18:10 06/27/18 10:09 Laboratory Results - last 24 hr 06/29/18 06/29/18 06/30/18 16:11 19:19 03:51 POC Glucose 190 H 246 H 164 H 06/30/18 06/30/18 05:54 11:39 POC Glucose 164 H 190 H - Imaging Impressions Extremity Arterial Study 06/28/18 00:00 CONCLUSION: 1. Ankle-brachial indices could not be obtained. 2. Mild to moderately decreased toe brachial indices bilaterally, right greater than left. Consider CT angiography for better evaluation. Assessment and Plan - Plan Mr. Casey is a 67 y/o male with a history of hypertension, diabetes mellitus, CHF with an EF of 15 - 20% s/p recent AICD placement, and arthritis who was transferred from [facility] in [place] for admission to the med/ psych unit here for management of psychosis. Psychosis - Management per psychiatry Systolic CHF, not in acute decompensation BNP at [place] reported [id number] on admission to [place] 06/11 progress notes from [place] indicate EF of 15 - 20% with moderate to severe MR and moderate TR -Continue on Lasix at decreased dose 20 mg twice daily. Monitor electrolytes. -started on low dose ACEI, continue. Continue on BB. -Patient appears euvolemic on exam, continue to monitor for signs of fluid overload -recent AICD placement - He still has sutures in place. Unclear when this was done, patient is a poor historian. For now keep dressing in place, we have no other information. Unable to get reliable verification regarding when and where AICD was placed. Hypertension Hypotension, improved -Continue on lisinopril 5 mg daily and carvedilol with hold parameters. -Monitor BP and adjust treatment accordingly Renal insufficiency No baseline labs for comparison Suspect Cr is at or near baseline -Avoid nephrotoxic agents -Monitor kidney function as indicated Diabetes Mellitus HgA1C 10.8 on 06/11 at [place] Blood sugars with fair control, running high 100s/low 200 -Patient has been refusing ISS and preprandial insulin intermittently. Continue on Levemir to 22u BID. Discontinue preprandial insulin, patient refusing. -Accu checks with low dose SS Novolog coverage -PRN hypoglycemia treatment protocol Bilateral LE stasis dermatitis - appear chronic secondary to suspected PVD Open wounds and cellulitis BLE, MRSA Wound cx + MRSA. Started on po Doxycycline. -ID, Vascular surgery and podiatry following, appreciate assistance. Per ID , continue with Doxycycline po. Per Podiatry, no surgical intervention, wound care orders placed. -ABIs completed - unable to obtain ABIs, mild to moderate decrease in toe brachial indices bilateral R>L DVT prophylaxis -continue Lovenox 40 mg subq q24h Discharge Planning: discharge disposition per primary team
[2018-06-30] MEDS: Collagenase Oint 30 GM Tube TOPICAL SCH (15:40)
[2018-06-30] MEDS: risperiDONE 2 MG ODT PO SCH (21:50)
[2018-07-01] MEDS: Insulin NovoLOG Aspart Correctional Sugar Inj SQ SCH ×5 (03:31→22:22)
[2018-07-01] MEDS: Lisinopril 5 MG Tablet PO SCH (08:20)
[2018-07-01] MEDS: Famotidine 20 MG Tablet PO SCH ×2 (08:20→21:34)
[2018-07-01] MEDS: risperiDONE 1 MG ODT PO SCH (08:20)
[2018-07-01] MEDS: Collagenase Oint 30 GM Tube TOPICAL SCH (08:21)
[2018-07-01] MEDS: Insulin Detemir Inj 1,000 UNIT/10 ML Vial SQ SCH ×2 (08:21→21:33)
[2018-07-01] MEDS: Enoxaparin Inj 40 MG/0.4 ML Syringe SQ SCH (08:22)
[2018-07-01] MEDS: Furosemide 20 MG Tablet PO SCH ×2 (08:23→17:28)
--- NOTE | 2018-07-01 13:39 | P.PN ---
Subjective Interval history: Follow-up on patient with bilateral lower extremity wounds, recent AICD placement, diabetes. Patient seen and examined. Patient continues to claim that he is being held here against his will. He states that everyone is lying to him. He denies any acute medical complaints. Denies any fever or chills. Denies any chest pain or shortness of breath. Denies any nausea, vomiting or abdominal pain. Discussed with nursing staff, no acute issues noted Physical Exam Vital signs: Vital Signs 06/30/18 18:22 07/01/18 06:00 Temperature 98.1 F 97.7 F Pulse Rate 85 87 Respiratory Rate 18 18 Blood Pressure 115/56 L 146/82 H Pulse Oximetry 94 L 97 Intake & Output 06/30/18 07/01/18 07/01/18 18:59 06:59 18:59 Intake Total 1320 / 1320 720 / 720 850 / 850 Balance 1320 / 1320 720 / 720 850 / 850 Intake: Oral 1320 / 1320 720 / 720 850 / 850 Narrative: GENERAL: 67-year-old elderly male patient, INAD. Awake and alert. Sitting on side of bed. SKIN: Venous stasis changes BLEs. +eschars noted on both lower extremities weeping drainage, improving. Dressing C/D/I. Distal pulses not palpable. Bilateral feet warm. HEENT: Atraumatic. Normocephalic. Pupils equal and round. No scleral icterus. No injection or drainage. No nasal bleeding or discharge. Mucous membranes pink and moist. NECK: Trachea midline. CARDIOVASCULAR: S1-S2, occasionally irregular. Unable to detect any murmurs rubs or gallops. CHEST: Left chest wall with dressing in place, zip tie suture in place, no evidence of infection. RESPIRATORY: No accessory muscle use. Clear to auscultation. Breath sounds equal bilaterally. GASTROINTESTINAL: Abdomen soft, non-tender, nondistended. MUSCULOSKELETAL: Extremities without clubbing, cyanosis, trace pretibial edema. No obvious deformities. NEUROLOGICAL: Awake and alert. Able to move all extremities spontaneously. No focal neurologic findings appreciated. Normal speech. PSYCHIATRIC: Calm and cooperative with exam. Delusional grandiose thinking. Results - Labs CBC & Chem 7: 06/19/18 18:10 06/27/18 10:09 Laboratory Results - last 24 hr 06/30/18 06/30/18 07/01/18 16:27 19:35 03:29 POC Glucose 136 H 199 H 158 H 07/01/18 07/01/18 05:56 11:27 POC Glucose 138 H 165 H Assessment and Plan - Plan Mr. Casey is a 67 y/o male with a history of hypertension, diabetes mellitus, CHF with an EF of 15 - 20% s/p recent AICD placement, and arthritis who was transferred from [facility] in [place] for admission to the med/ psych unit here for management of psychosis. Psychosis - Management per psychiatry Systolic CHF, not in acute decompensation BNP at [place] reported [id number] on admission to [facility] 06/11 progress notes from [place] indicate EF of 15 - 20% with moderate to severe MR and moderate TR -Continue on Lasix at decreased dose 20 mg twice daily. Monitor electrolytes. -started on low dose ACEI, continue. Continue on BB. -Patient appears euvolemic on exam, continue to monitor for signs of fluid overload -recent AICD placement - He still has sutures in place. Unclear when this was done, patient is a poor historian. For now keep dressing in place, we have no other information. Unable to get reliable verification regarding when and where AICD was placed. DW Dr. Kramer, may remove zip tie closures. Order placed to remove sutures. Hypertension Hypotension, improved -Continue on lisinopril 5 mg daily and carvedilol with hold parameters. -Monitor BP and adjust treatment accordingly Renal insufficiency No baseline labs for comparison Suspect Cr is at or near baseline -Avoid nephrotoxic agents -Monitor kidney function as indicated Diabetes Mellitus HgA1C 10.8 on 06/11 at [place] Blood sugars adequately controlled -Patient has been refusing ISS and preprandial insulin intermittently. Continue on Levemir 22u BID. Discontinue preprandial insulin, patient refusing. -Accu checks with low dose SS Novolog coverage -PRN hypoglycemia treatment protocol Bilateral LE stasis dermatitis - appear chronic secondary to suspected PVD Open wounds and cellulitis BLE, MRSA Wound cx + MRSA. Started on po Doxycycline -ID, Vascular surgery and podiatry following, appreciate assistance. Per ID , continue with Doxycycline po. Per Podiatry, no surgical intervention, wound care orders placed. -ABIs completed - unable to obtain ABIs, mild to moderate decrease in toe brachial indices bilateral R>L. Cleared for discharge from vascular surgery standpoint. DVT prophylaxis -continue Lovenox 40 mg subq q24h Patient appears stable from hospitalist standpoint. [facility] will sign off. Please reconsult if needed. Discussed Condition With: patient, nursing staff, Dr. Kramer, Dr. Nguyễn Discharge Planning: discharge disposition per primary team
--- NOTE | 2018-07-01 14:34 | P.PNPSY ---
Subjective Remarks: Patient seen in his room dosing, chart reviewed, patient discussed with nurse. Patient arousable somewhat more irritable today related to his desire to leave. Though appears somewhat more confused continues today to talk about his house and [place] and getting his vehicle and driving there. We continue to focus on getting him to the [facility] and [place] however patient still is having difficulty with treatment of his lower leg wounds. I feel then not healed to the point where he can manage them independently Review of Systems All other systems reviewed negative except as stated in HPI Mental Status Examination Appearance: Appropriate Consciousness: Alert Orientation: Person, Place, Date/Time (Vaguely) Motor Activity: Normal gait Speech: Unremarkable Language: Adequate Fund of Knowledge: Inadequate Attention and Concentration: Easily distracted Memory: Impaired Mood: Other (Euthymic to mildly irritable) Affect: Other (Slight increased range and intensity) Thought Process & Associations: Circumstantial, Disorganized Thought Content: Preoccupations (With his vehicle and to be discharged), Delusional Hallucination Type: None Delusion Type: Bizarre, Paranoid Suicidal Ideation: No Suicidal Plan: No Suicidal Intention: No Homicidal Ideation: No Homicidal Plan: No Homicidal Intention: No Insight: Poor Judgment: Poor Assessment and Plan - Assessment (1) Unspecified psychosis Code(s): F29 - Unspecified psychosis not due to a substance or known physiological condition Status: Acute - Plan Plan: Patient continues somewhat psychotic and confused, she was showing some resistance to the staff for dressing his lower legs. 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
[2018-07-01] MEDS: risperiDONE 2 MG ODT PO SCH (21:34)
[2018-07-02] MEDS: Lisinopril 5 MG Tablet PO SCH (08:49)
[2018-07-02] MEDS: risperiDONE 1 MG ODT PO SCH (08:50)
[2018-07-02] MEDS: Collagenase Oint 30 GM Tube TOPICAL SCH (08:50)
[2018-07-02] MEDS: Famotidine 20 MG Tablet PO SCH ×2 (08:50→20:34)
[2018-07-02] MEDS: Enoxaparin Inj 40 MG/0.4 ML Syringe SQ SCH (08:50)
[2018-07-02] MEDS: Furosemide 20 MG Tablet PO SCH ×2 (08:52→17:24)
[2018-07-02] MEDS: Insulin NovoLOG Aspart Correctional Sugar Inj SQ SCH ×4 (09:13→21:35)
[2018-07-02] MEDS: Insulin Detemir Inj 1,000 UNIT/10 ML Vial SQ SCH ×2 (09:14→21:32)
--- NOTE | 2018-07-02 15:01 | P.PNPSY ---
Subjective Remarks: Patient seen in his room patient continues to focus somewhat on discharge and his feelings of how he arrived at this facility. There is been no behavior problems. He has been cooperative also with his wound care. Though some of the wounds appear to be still open. There is a possibility for the patient to be discharged first part of next week to a [place] [facility] in the [facility], however we need the hospitalist who guided us on medical clearance related to his wounds and proper instructions as to wound care for this man if he is [facility] a [facility] thus I have reconsulted hospitalist who helpless we will also increase Resporal to 2 mg a.m. 2 mg at bedtime Review of Systems All other systems reviewed negative except as stated in HPI Mental Status Examination Appearance: Appropriate Consciousness: Alert Orientation: Person, Place, Date/Time (Vaguely) Motor Activity: Normal gait Speech: Unremarkable Language: Adequate Fund of Knowledge: Inadequate Attention and Concentration: Easily distracted Memory: Impaired Mood: Other (Euthymic to mildly irritable) Affect: Other (Slight increased range and intensity) Thought Process & Associations: Circumstantial, Disorganized Thought Content: Preoccupations (With his vehicle and to be discharged), Delusional Hallucination Type: None Delusion Type: Bizarre, Paranoid Suicidal Ideation: No Suicidal Plan: No Suicidal Intention: No Homicidal Ideation: No Homicidal Plan: No Homicidal Intention: No Insight: Poor Judgment: Poor Assessment and Plan - Assessment (1) Unspecified psychosis Code(s): F29 - Unspecified psychosis not due to a substance or known physiological condition Status: Acute - Plan Plan: Patient is still is somewhat delusional ideation related to the process coming to this hospital though it is softer and he is compliant with his medications. We will also increase his Resporal to 2 mg a.m. 2 mg at bedtime and reconsult hospitalist to help us with medical clearance and instructions on wound care for this gentleman Justification for Continued Inpatient Stay: At this time patient would decompensate a place to a lower level of care Discharge Planning: To be determined perhaps a [facility] and the [facility] Request Healthcare Surrogate/Guardian Advocate?: Yes (1) Unspecified psychosis Qualifiers: Psychosis type: brief psychotic disorder Qualified Code(s): F23 - Brief psychotic disorder
[2018-07-02] MEDS: risperiDONE 2 MG ODT PO SCH (20:35)
[2018-07-03] MEDS: Famotidine 20 MG Tablet PO SCH ×2 (08:38→20:45)
[2018-07-03] MEDS: risperiDONE 2 MG ODT PO SCH ×3 (08:38→20:46)
[2018-07-03] MEDS: Insulin Detemir Inj 1,000 UNIT/10 ML Vial SQ SCH ×2 (08:38→20:50)
[2018-07-03] MEDS: Enoxaparin Inj 40 MG/0.4 ML Syringe SQ SCH (08:38)
[2018-07-03] MEDS: Lisinopril 5 MG Tablet PO SCH (08:38)
[2018-07-03] MEDS: Collagenase Oint 30 GM Tube TOPICAL SCH (08:39)
[2018-07-03] MEDS: Insulin NovoLOG Aspart Correctional Sugar Inj SQ SCH ×4 (08:39→20:48)
[2018-07-03] MEDS: Furosemide 20 MG Tablet PO SCH ×2 (08:40→17:44)
--- NOTE | 2018-07-03 16:20 | P.PNPSY ---
Subjective Remarks: Patient seen for follow up; chart reviewed. Discussion with nursing staff reported that patient patient with no physical complaints, compliant with medication allowing care. Patient was found sitting hospital chair history he is feeling very frustrated and upset that he continues to be kidnapped, and believing that "they are trying to kill me, my son is not on it". Patient continues to endorse paranoid delusions. Patient denies any physical complaints at this time, denies feeling depressed, denies any perceptional disturbances. Review of Systems All other systems reviewed negative except as stated in HPI Mental Status Examination Appearance: Appropriate Consciousness: Alert Orientation: Person, Place, Date/Time (Vaguely) Motor Activity: Normal gait Speech: Unremarkable Language: Adequate Fund of Knowledge: Inadequate Attention and Concentration: Easily distracted Memory: Impaired Mood: Other (Euthymic to mildly irritable) Affect: Other (Slight increased range and intensity) Thought Process & Associations: Circumstantial, Disorganized Thought Content: Preoccupations (With his vehicle and to be discharged), Delusional Hallucination Type: None Delusion Type: Bizarre, Paranoid Suicidal Ideation: No Suicidal Plan: No Suicidal Intention: No Homicidal Ideation: No Homicidal Plan: No Homicidal Intention: No Insight: Poor Judgment: Poor Assessment and Plan - Assessment (1) Unspecified psychosis Code(s): F29 - Unspecified psychosis not due to a substance or known physiological condition Status: Acute - Plan Plan: Patient continues with persecutory and paranoid delusions. We will continue current treatment. We will continue to monitor mood and behavior. Discharge planning a progress. Justification for Continued Inpatient Stay: At risk of further decompensation a lower level of care. Request Healthcare Surrogate/Guardian Advocate?: Yes (1) Unspecified psychosis Qualifiers: Psychosis type: brief psychotic disorder Qualified Code(s): F23 - Brief psychotic disorder
[2018-07-04] MEDS: Insulin Detemir Inj 1,000 UNIT/10 ML Vial SQ SCH ×2 (08:49→21:30)
[2018-07-04] MEDS: Famotidine 20 MG Tablet PO SCH ×2 (08:50→21:29)
[2018-07-04] MEDS: Lisinopril 5 MG Tablet PO SCH (08:50)
[2018-07-04] MEDS: risperiDONE 2 MG ODT PO SCH ×2 (08:50→21:29)
[2018-07-04] MEDS: Collagenase Oint 30 GM Tube TOPICAL SCH (08:50)
[2018-07-04] MEDS: Enoxaparin Inj 40 MG/0.4 ML Syringe SQ SCH (08:50)
[2018-07-04] MEDS: Insulin NovoLOG Aspart Correctional Sugar Inj SQ SCH ×4 (08:50→21:29)
[2018-07-04] MEDS: Furosemide 20 MG Tablet PO SCH ×2 (08:52→17:49)
--- NOTE | 2018-07-04 16:25 | P.PNPSY ---
Subjective Remarks: Patient seen for follow-up, chart reviewed. Discussion with nursing staff reported the patient no behavioral changes, continues to be delusional and paranoid. Patient was found sitting hospital chair watching television stating that he is feeling "the same" denying any physical complaints at this time, noted to be more pleasant today, less perseverative on paranoid persecutory delusions. Patient eating and drinking well. Patient denies any auditory or visual hallucinations. Review of Systems All other systems reviewed negative except as stated in HPI Mental Status Examination Appearance: Appropriate Consciousness: Alert Orientation: Person, Place, Date/Time (Vaguely) Motor Activity: Normal gait Speech: Unremarkable Language: Adequate Fund of Knowledge: Inadequate Attention and Concentration: Easily distracted Memory: Impaired Mood: Good Affect: Other (Slight increased range and intensity) Thought Process & Associations: Circumstantial, Disorganized Thought Content: Preoccupations (With his vehicle and to be discharged), Delusional Hallucination Type: None Delusion Type: Bizarre, Paranoid Suicidal Ideation: No Suicidal Plan: No Suicidal Intention: No Homicidal Ideation: No Homicidal Plan: No Homicidal Intention: No Insight: Poor Judgment: Poor Assessment and Plan - Assessment (1) Unspecified psychosis Code(s): F29 - Unspecified psychosis not due to a substance or known physiological condition Status: Acute - Plan Plan: Patient this time continues with paranoid and persecutory delusions but noted to be more pleasant and less perseverative on these delusions today. We will continue current treatment. We will continue to monitor mood and behavior. Discharge planning a progress. Justification for Continued Inpatient Stay: At risk of further decompensation a lower level care. Request Healthcare Surrogate/Guardian Advocate?: Yes (1) Unspecified psychosis Qualifiers: Psychosis type: brief psychotic disorder Qualified Code(s): F23 - Brief psychotic disorder
[2018-07-05] MEDS: Insulin NovoLOG Aspart Correctional Sugar Inj SQ SCH ×6 (05:22→20:40)
[2018-07-05] MEDS: risperiDONE 2 MG ODT PO SCH ×2 (08:33→20:38)
[2018-07-05] MEDS: Famotidine 20 MG Tablet PO SCH ×2 (08:33→20:38)
[2018-07-05] MEDS: Insulin Detemir Inj 1,000 UNIT/10 ML Vial SQ SCH ×2 (08:34→20:41)
[2018-07-05] MEDS: Lisinopril 5 MG Tablet PO SCH (08:34)
[2018-07-05] MEDS: Enoxaparin Inj 40 MG/0.4 ML Syringe SQ SCH (08:35)
[2018-07-05] MEDS: Collagenase Oint 30 GM Tube TOPICAL SCH (10:14)
[2018-07-05] MEDS: Furosemide 20 MG Tablet PO SCH ×2 (10:26→18:00)
--- NOTE | 2018-07-05 16:39 | P.PNPSY ---
Subjective Remarks: Patient seen sitting in chair in his room listening to music, dressings noted on both lower legs. Patient somewhat calmer today appears to be accepting the possible placement at [facility]. We need to Review of Systems All other systems reviewed negative except as stated in HPI Mental Status Examination Appearance: Appropriate Consciousness: Alert Orientation: Person, Place, Date/Time (Vaguely) Motor Activity: Normal gait Speech: Unremarkable Language: Adequate Fund of Knowledge: Inadequate Attention and Concentration: Easily distracted Memory: Impaired Mood: Good Affect: Other (Slight increased range and intensity) Thought Process & Associations: Circumstantial, Disorganized Thought Content: Preoccupations (With his vehicle and to be discharged), Delusional Hallucination Type: None Delusion Type: Bizarre, Paranoid Suicidal Ideation: No Suicidal Plan: No Suicidal Intention: No Homicidal Ideation: No Homicidal Plan: No Homicidal Intention: No Insight: Poor Judgment: Poor Assessment and Plan - Assessment (1) Unspecified psychosis Code(s): F29 - Unspecified psychosis not due to a substance or known physiological condition Status: Acute - Plan Plan: Patient continues somewhat confused but less irritable operating with us with his Justification for Continued Inpatient Stay: At this time patient would decompensate if not placed in an appropriate level of care Discharge Planning: To be determined possibly [facility] Request Healthcare Surrogate/Guardian Advocate?: Yes (1) Unspecified psychosis Qualifiers: Psychosis type: brief psychotic disorder Qualified Code(s): F23 - Brief psychotic disorder
[2018-07-06] MEDS: Insulin NovoLOG Aspart Correctional Sugar Inj SQ SCH ×5 (05:05→21:00)
[2018-07-06] MEDS: Famotidine 20 MG Tablet PO SCH ×2 (10:10→22:26)
[2018-07-06] MEDS: Lisinopril 5 MG Tablet PO SCH (10:10)
[2018-07-06] MEDS: Enoxaparin Inj 40 MG/0.4 ML Syringe SQ SCH (10:11)
[2018-07-06] MEDS: risperiDONE 2 MG ODT PO SCH ×2 (10:11→22:27)
[2018-07-06] MEDS: Insulin Detemir Inj 1,000 UNIT/10 ML Vial SQ SCH ×2 (10:12→22:31)
[2018-07-06] MEDS: Furosemide 20 MG Tablet PO SCH (10:17)
--- NOTE | 2018-07-06 15:28 | P.PNPSY ---
Subjective Remarks: Patient seen in his room with nurse Radha, chart reviewed, patient compliant medication. Patient is calm cooperative is somewhat confused seems to be accepting the fact that he needs to have his wounds medically cleared prior to transfer to the [place] longterm. He has been no behavioral problem recently. For now continue treatment Review of Systems All other systems reviewed negative except as stated in HPI Mental Status Examination Appearance: Appropriate Consciousness: Alert Orientation: Person, Place, Date/Time (Vaguely) Motor Activity: Normal gait Speech: Unremarkable Language: Adequate Fund of Knowledge: Inadequate Attention and Concentration: Easily distracted Memory: Impaired Mood: Good Affect: Other (Slight increased range and intensity) Thought Process & Associations: Circumstantial, Disorganized Thought Content: Preoccupations (With his vehicle and to be discharged), Delusional Hallucination Type: None Delusion Type: Bizarre, Paranoid Suicidal Ideation: No Suicidal Plan: No Suicidal Intention: No Homicidal Ideation: No Homicidal Plan: No Homicidal Intention: No Insight: Poor Judgment: Poor Assessment and Plan - Assessment (1) Unspecified psychosis Code(s): F29 - Unspecified psychosis not due to a substance or known physiological condition Status: Acute - Plan Plan: Patient is showing improved behavior cooperation compliance medication. Less signs of psychosis. Showing some processing of the fact that he needs medical clearance for his legs before he can be discharged Justification for Continued Inpatient Stay: At this time patient would decompensate a place to a lower level of care Discharge Planning: Anticipated placement in [facility] when medically clear Request Healthcare Surrogate/Guardian Advocate?: Yes (1) Unspecified psychosis Qualifiers: Psychosis type: brief psychotic disorder Qualified Code(s): F23 - Brief psychotic disorder
[2018-07-07] MEDS: Insulin NovoLOG Aspart Correctional Sugar Inj SQ SCH ×5 (03:14→21:38)
[2018-07-07] MEDS: risperiDONE 2 MG ODT PO SCH ×2 (09:47→21:26)
[2018-07-07] MEDS: Famotidine 20 MG Tablet PO SCH ×2 (09:47→21:26)
[2018-07-07] MEDS: Enoxaparin Inj 40 MG/0.4 ML Syringe SQ SCH (09:47)
[2018-07-07] MEDS: Lisinopril 5 MG Tablet PO SCH (09:47)
[2018-07-07] MEDS: Insulin Detemir Inj 1,000 UNIT/10 ML Vial SQ SCH ×2 (10:09→21:41)
[2018-07-07] MEDS: Furosemide 20 MG Tablet PO SCH (10:09)
[2018-07-07] MEDS: Collagenase Oint 30 GM Tube TOPICAL SCH (10:13)
--- NOTE | 2018-07-07 16:58 | P.PNPSY ---
Subjective Remarks: Patient seen in his room with nurse olivas. Chart reviewed. Patient compliant medication. It appears patient has been medically cleared now from his leg wounds this we will attempt to [facility] the next 1-2 days. Patient happy about this calm cooperative pleased that we were honest about him with Review of Systems All other systems reviewed negative except as stated in HPI Mental Status Examination Appearance: Appropriate Consciousness: Alert Orientation: Person, Place, Date/Time (Vaguely) Motor Activity: Normal gait Speech: Unremarkable Language: Adequate Fund of Knowledge: Inadequate Attention and Concentration: Easily distracted Memory: Impaired Mood: Good Affect: Other (Slight increased range and intensity) Thought Process & Associations: Circumstantial, Disorganized Thought Content: Preoccupations (With his vehicle and to be discharged), Delusional Hallucination Type: None Delusion Type: Bizarre, Paranoid Suicidal Ideation: No Suicidal Plan: No Suicidal Intention: No Homicidal Ideation: No Homicidal Plan: No Homicidal Intention: No Insight: Poor Judgment: Poor Assessment and Plan - Assessment (1) Unspecified psychosis Code(s): F29 - Unspecified psychosis not due to a substance or known physiological condition Status: Acute - Plan Plan: Patient calm cooperative happy there is been medically cleared, continues somewhat confused but overall pleasant Justification for Continued Inpatient Stay: At this time patient would decompensate a place to a lower level of care Discharge Planning: To be determined Request Healthcare Surrogate/Guardian Advocate?: Yes (1) Unspecified psychosis Qualifiers: Psychosis type: brief psychotic disorder Qualified Code(s): F23 - Brief psychotic disorder
[2018-07-08] MEDS: Enoxaparin Inj 40 MG/0.4 ML Syringe SQ SCH (08:58)
[2018-07-08] MEDS: Collagenase Oint 30 GM Tube TOPICAL SCH (08:58)
[2018-07-08] MEDS: risperiDONE 2 MG ODT PO SCH ×2 (08:59→22:38)
[2018-07-08] MEDS: Insulin NovoLOG Aspart Correctional Sugar Inj SQ SCH ×4 (08:59→21:38)
[2018-07-08] MEDS: Lisinopril 5 MG Tablet PO SCH (08:59)
[2018-07-08] MEDS: Famotidine 20 MG Tablet PO SCH ×2 (08:59→22:38)
[2018-07-08] MEDS: Furosemide 20 MG Tablet PO SCH ×3 (09:01→17:48)
[2018-07-08] MEDS: Insulin Detemir Inj 1,000 UNIT/10 ML Vial SQ SCH ×2 (09:12→22:37)
--- NOTE | 2018-07-08 12:37 | P.TTN ---
- Patient Problems Problems: 1. Discharge planning 2. Medication compliance 3. Knowledge deficit 4. Lack of coping skills - Progress Toward Goals Provider Present: Dr. Inessa Aldridge Provider Input: 07/07/18 Patient is less depressed, has some confusion and dementia. 06/30/2018; patient [facility] to [facility] when medically cleared. Patient is being treated medically, and stablizing with treatment. Pt is delusional. There is no one to sign for medication. He had recent heart surgery. 06/23/18: Pt is expected to attend court hearing 06/24/18 for legal considerations. Nurse(s) Present: More Nurse Input: 06/30/2018; patient is eating and taking meds. 06/29/2018; pateint is eating meals and taking his medications, no behavior. Pt is med compliant although he is refusing care for his ulcered wounds. He is DC oriented , with cognitive deficits, and desires to transfer to the [place] hospital. 06/23/18 : Pt continues to require medical care for wounds, he continues to express desire to return to [place] hospital. Psychiatric Counselors Present: Other Psychiatric Therapist Input: 07/07/18 Destinee- Patient is in need of placement and looking to discharge to [facility] when stable. 06/30/2018; patient will call [facility] correction to set patient up with tem housing . Counselor will contact the following [place] providers for placement: Jerilyn Arevalo , with [facility] , [place] ([facility]) Tiffany, with the homeless [place] program and Andres with the [phone]. Pt is grandiose and delusional. He is [facility] through the [facility]. He is connected to the [facility] in [place]. 06/23/18: Pt continues to meet criteria, expected discharge may include return to [facility]. Per Debbie's contact with family, family related housing is not an option. Group Spec/RT/OT/CRUZ Present: Huyen Sharp, GPS, Adriano Macias, OT Group Spec/RT/OT/CRUZ Input: 07/07/18 - Patient on isolation and cannot attend groups presently. 06/30/2018; patient has been unable to attend groups due to medical. Patient is attending select groups and activities. Pt does not participate in groups. 06/23/18: Pt does not attend groups, per pt refusals. - Discharge Plan Per medical staff; Pt expected to attend court hearing on 06/24/18, pt's D/C plan option is to return pt to [facility], pending court approval. - Documentation Scribe: Adriano Macias MS, OTR Teaching Recipient: Patient
--- NOTE | 2018-07-08 13:31 | P.TTN ---
- Patient Problems Problems: 1. Discharge planning 2. Medication compliance 3. Knowledge deficit 4. Lack of coping skills - Progress Toward Goals Provider Present: Dr. Inessa Aldridge Provider Input: 07/07/18 Patient is less depressed, has some confusion and dementia. 07/05/18: Pt continues to accept his situation with lifting depressive symptoms and increased participation with discharge plan, wounds have not fully healed. 06/30/2018; patient can be dc to [facility] setting when medically cleared. Patient is being treated medically, and stablizing with treatment. Pt is delusional. There is no one to sign for medication. He had recent heart surgery. 06/23/18: Pt is expected to attend court hearing 06/24/18 for legal considerations. Nurse(s) Present: More Nurse Input: 07/05/18: Pt compliant with eating meals taking medications. 06/30; patient is eating and taking meds. 06/29/2018; pateint is eating meals and taking his medications, no behavior. Pt is med compliant although he is refusing care for his ulcered wounds. He is DC oriented, with cognitive deficits , and desires to transfer to the [place] hospital. 06/23/18: Pt continues to require medical care for wounds, he continues to express desire to return to [place] hospital. Psychiatric Counselors Present: Other Psychiatric Therapist Input: 07/07/18 Destinee- Patient is in need of placement and looking to discharge to [facility] when stable. 07/05/18: Destinee; pt forecast is for VA discharge preferably in this local area, other options under consideration. 06/30/2018; patient will call [facility] skilled nursing to set patient up with temp housing . Counselor will contact the following [place] providers for placement: Jerilyn Arevalo, with [facility] , [place] ([facility]) Tiffany, with the homeless [place] program and Andres with the [facility]- . Pt is grandiose and delusional. He is covered 90% through the VA. He is connected to the VA in [place]. 06/23/18 : Pt continues to meet criteria, expected discharge may include return to [facility]. Per Debbei's contact with family, family related housing is not an option. Group Spec/RT/OT/CRUZ Present: Huyen Sharp, GPS, Adriano Macias, OT Group Spec/RT/OT/CRUZ Input: 07/07/18 - Patient on isolation and cannot attend groups presently. 07/05/18: Pt on isolation precautions, he does not therefore attend groups. 06/30/2018; patient has been unable to attend groups due to medical. Patient is attending select groups and activities. Pt does not participate in groups. 06/23/18: Pt does not attend groups, per pt refusals. Occupational Therapist Input: No OT services - Discharge Plan Per medical staff; Pt expected to attend court hearing on 06/24/18, pt's D/C plan option is to return pt to [facility], pending court approval. - Documentation Scribe: Adriano Macias MS, OTR Teaching Recipient: Patient
--- NOTE | 2018-07-08 14:46 | P.DSPSY ---
Psychiatry Discharge Summary Inpatient Psychiatric care?: Yes Advance Directives: No Mental Health Advance Directive: No Health Care Proxy: No - Admission Admission Date: June 17, 2018 16:58 - Admission Diagnosis (1) Unspecified psychosis Code(s): F29 - Unspecified psychosis not due to a substance or known physiological condition (2) Mild cognitive impairment with memory loss Code(s): G31.84 - Mild cognitive impairment, so stated Brief History: Patient is a 67-year-old man, unclear where patient resides and with whom, , with unclear past psychiatric history, patient denies any previous psychiatric admissions, diagnoses, suicide attempt or self- injurious behavior, patient denies any substance use history, with a past medical history significant for hypertension, diabetes, cancers of heart failure , recent AICD, arthritis was transferred from [facility] for suspected psychosis S patient was noted to be disorganized, confused and delusional which patient was admitted to the inpatient psychiatry for further evaluation and management. As per [place] act patient was planning to refuse further cardiac care, Sobia also be mailed him and told him to get to [facility] which she drove down to [place] from [place] is also told him to. Patient was found sitting hospital chair in the room noted B, cooperative. Patient notes noted to be disorganized during interview with mortgage loan underwriter ideas, confused, oriented to person and the only. Patient states that he should not had put here in the hospital stating that he was on his way to [facility] he states he was gotten an email from Jacobo Hinton "blanket female". Patient also mentions having gone to [place] to help his son who was involved in drugs and states he was making his way back to [place]. Patient states that he had gone to [place] for a second opinion from a cardiac doctor for having been told that he is going to from "[place]" referring to exposure to his biological weapon during his time in service. He states that prior to his admission he was driving on the highway had run out of gas and brought here to this hospital. Patient states that he is feeling "good " patient is a poor historian, with disorganized recalling of events and history. Family psychiatric history: Denies Past psychiatric history: Denies Substance use history: Denies Allergies: NKDA Past medical history: Hypertension, DM, CHF, recent AICD, arthritis Social history: 7 years ago, states living in [place], is a retired teacher, stated that he lived in a snf center in [place]. Collateral information obtained by treatment team confirmed through the VA office that patient is 90% connected to the VA in [place]. Tobacco Use In Past 30 Days: No How Often Do You Have a Drink Containing Alcohol: Monthly or less Hospital Course: Patient's hospital course was essentially uneventful, he showed compliance with medication from admission, the some irritability and vague paranoia and noted that resolved as he became compliant with his medication. He continued to focus on his need to get towards his ex-'s house and [place]. However he he was essentially homeless at the time of his admission. We discovered that he was a did have veterans benefits. He did wish to go to the [facility] and there senior living. He states he had been there before. His leg wounds have healed has been medically cleared. He denies suicidality homicidality voices or visions has been calm and cooperative with us. Patient does know where his vehicle is in storage in the [facility]. However at this time patient will be discharged tomorrow morning early to be taken to the [facility] area for further care and attention feel given Rx 1 month. In [place] to transport him to that facility. He may than at his discretion explore remains to regain possession of his vehicle. The then be up to his discretion whether he contacts his are not in [place] - Discharge Discharge Date: 07/09/18 Discharge Disposition: [facility] senior living - Discharge Instructions Discharge Diet: Diabetic Diet Activities You Can Perform: Regular- No Restrictions - Discharge Time > 30 minutes Mental Status Examination Appearance: Appropriate Consciousness: Alert Orientation: Person, Place, Date/Time (Vaguely) Motor Activity: Normal gait Speech: Unremarkable Language: Adequate Fund of Knowledge: Inadequate Attention and Concentration: Easily distracted Memory: Impaired Mood: Good Affect: Other (Slight increased range and intensity) Thought Process & Associations: Circumstantial, Disorganized Thought Content: Preoccupations (With his vehicle and to be discharged), Delusional Hallucination Type: None Delusion Type: Bizarre, Paranoid Suicidal Ideation: No Suicidal Plan: No Suicidal Intention: No Homicidal Ideation: No Homicidal Plan: No Homicidal Intention: No Insight: Poor Judgment: Poor Discharge/Advance Care Plan - Results Vital Signs: Last Vital Signs Temp 97.4 F L 07/08/18 07:07 Pulse 88 07/08/18 07:07 Resp 17 07/08/18 07:07 BP 113/77 07/08/18 07:07 Pulse Ox 97 07/08/18 07:07 Lab Results: Abnormal Lab Results 07/07/18 07/07/18 07/08/18 17:00 21:31 02:55 POC Glucose 130 H 173 H 107 07/08/18 07/08/18 07:14 11:35 POC Glucose 103 124 H Summary of Procedures: Treatment of wounds both lower legs Imaging: ITS Impressions Extremity Arterial Study 06/28/18 00:00 CONCLUSION: 1. Ankle-brachial indices could not be obtained. 2. Mild to moderately decreased toe brachial indices bilaterally, right greater than left. Consider CT angiography for better evaluation. Pending Results: None - Medications Number of antipsychotic medications at discharge: 1 - Discharge Care Plan Goals to Promote Your Health: * To prevent worsening of your condition and complications * To maintain your health at the optimal level Directions to Meet Your Goals: Take your medications as prescribed Follow your dietary instruction Follow activity as directed Keep your appointments as scheduled Take your immunizations and boosters as scheduled If your symptoms worsen call your PCP, if no PCP go to Urgent Care Center or Emergency Room For 18/05 questions related to your inpatient stay or results of tests pending at discharge, please contact Dr. Berny Aldridge MD at Smoking is Dangerous to Your Health. Avoid second hand smoking (1) Unspecified psychosis Qualifiers: Psychosis type: brief psychotic disorder Qualified Code(s): F23 - Brief psychotic disorder
[2018-07-09] MEDS: Collagenase Oint 30 GM Tube TOPICAL SCH (09:18)
[2018-07-09] MEDS: Famotidine 20 MG Tablet PO SCH ×2 (09:18→22:07)
[2018-07-09] MEDS: Enoxaparin Inj 40 MG/0.4 ML Syringe SQ SCH (09:18)
[2018-07-09] MEDS: Lisinopril 5 MG Tablet PO SCH (09:19)
[2018-07-09] MEDS: Furosemide 20 MG Tablet PO SCH ×2 (09:26→17:33)
[2018-07-09] MEDS: Insulin NovoLOG Aspart Correctional Sugar Inj SQ SCH ×4 (09:29→22:06)
[2018-07-09] MEDS: Insulin Detemir Inj 1,000 UNIT/10 ML Vial SQ SCH ×2 (09:30→22:07)
[2018-07-09] MEDS: risperiDONE 2 MG ODT PO SCH ×2 (09:32→22:07)
--- NOTE | 2018-07-09 16:54 | P.PNPSY ---
Subjective Remarks: Patient's discharge was canceled by me today the assumptions related to his entrance to the [place] [facility] was not possible. We also learned that there is restraining order against him related to his 's location. There is also discussion with the patient's son who said his father had similar behavioral issues in the past at that time I decided that this was going to be an unsafe discharge to cancel the discharge we discussed this with the patient need to have further conversation with him and his son for safe discharge placement Mental Status Examination Appearance: Appropriate Consciousness: Alert Orientation: Person, Place, Date/Time (Vaguely) Motor Activity: Normal gait Speech: Unremarkable Language: Adequate Fund of Knowledge: Inadequate Attention and Concentration: Easily distracted Memory: Impaired Mood: Good Affect: Other (Slight increased range and intensity) Thought Process & Associations: Circumstantial, Disorganized Thought Content: Preoccupations (With his vehicle and to be discharged), Delusional Hallucination Type: None Delusion Type: Bizarre, Paranoid Suicidal Ideation: No Suicidal Plan: No Suicidal Intention: No Homicidal Ideation: No Homicidal Plan: No Homicidal Intention: No Insight: Poor Judgment: Poor Assessment and Plan - Assessment (1) Unspecified psychosis Code(s): F29 - Unspecified psychosis not due to a substance or known physiological condition Status: Acute - Plan Plan: Patient remained somewhat confused and somewhat angrier and irritable and also perhaps somewhat disappointed that he is not being discharged Justification for Continued Inpatient Stay: At this time patient would decompensate if placed in a lower level of care Discharge Planning: To be determined Request Healthcare Surrogate/Guardian Advocate?: Yes (1) Unspecified psychosis Qualifiers: Psychosis type: brief psychotic disorder Qualified Code(s): F23 - Brief psychotic disorder
[2018-07-10] MEDS: Insulin NovoLOG Aspart Correctional Sugar Inj SQ SCH ×5 (03:38→22:43)
[2018-07-10] MEDS: Enoxaparin Inj 40 MG/0.4 ML Syringe SQ SCH (08:29)
[2018-07-10] MEDS: Lisinopril 5 MG Tablet PO SCH (08:30)
[2018-07-10] MEDS: Insulin Detemir Inj 1,000 UNIT/10 ML Vial SQ SCH ×2 (08:31→22:43)
[2018-07-10] MEDS: Famotidine 20 MG Tablet PO SCH ×2 (08:31→21:56)
[2018-07-10] MEDS: risperiDONE 2 MG ODT PO SCH ×2 (08:33→21:56)
[2018-07-10] MEDS: Collagenase Oint 30 GM Tube TOPICAL SCH (08:33)
[2018-07-10] MEDS: Furosemide 20 MG Tablet PO SCH ×3 (12:43→17:41)
--- NOTE | 2018-07-10 18:32 | P.PNPSY ---
Subjective Remarks: Patient was seen and case discussed with nursing. Patient has poor insight into his admission. Discussed a convoluted story of how he got admitted here. He is behaving well on the unit. Mental Status Examination Appearance: Appropriate Consciousness: Alert Orientation: Person, Place, Date/Time (Vaguely) Motor Activity: Normal gait Speech: Unremarkable Language: Adequate Fund of Knowledge: Adequate Attention and Concentration: Easily distracted Memory: Impaired Mood: Good Affect: Other (Slight increased range and intensity) Thought Process & Associations: Circumstantial, Disorganized Thought Content: Preoccupations (With his vehicle and to be discharged), Delusional Hallucination Type: None Delusion Type: Bizarre, Paranoid Suicidal Ideation: No Suicidal Plan: No Suicidal Intention: No Homicidal Ideation: No Homicidal Plan: No Homicidal Intention: No Insight: Poor Judgment: Poor Assessment and Plan - Assessment (1) Unspecified psychosis Code(s): F29 - Unspecified psychosis not due to a substance or known physiological condition Status: Acute - Plan Plan: Continue current treatment plan Justification for Continued Inpatient Stay: Patient would decompensate in a less restrictive setting Request Healthcare Surrogate/Guardian Advocate?: Yes (1) Unspecified psychosis Qualifiers: Psychosis type: brief psychotic disorder Qualified Code(s): F23 - Brief psychotic disorder
[2018-07-11] MEDS: Insulin NovoLOG Aspart Correctional Sugar Inj SQ SCH ×6 (04:15→21:12)
[2018-07-11] MEDS: Insulin Detemir Inj 1,000 UNIT/10 ML Vial SQ SCH ×2 (09:02→21:13)
[2018-07-11] MEDS: Famotidine 20 MG Tablet PO SCH ×2 (09:03→20:53)
[2018-07-11] MEDS: Lisinopril 5 MG Tablet PO SCH (09:04)
[2018-07-11] MEDS: Enoxaparin Inj 40 MG/0.4 ML Syringe SQ SCH (09:04)
[2018-07-11] MEDS: Furosemide 20 MG Tablet PO SCH ×2 (09:06→18:15)
[2018-07-11] MEDS: Collagenase Oint 30 GM Tube TOPICAL SCH (09:07)
[2018-07-11] MEDS: risperiDONE 2 MG ODT PO SCH ×2 (12:06→20:53)
--- NOTE | 2018-07-11 15:24 | P.PNPSY ---
Subjective Remarks: Patient was seen and case discussed with nursing. Patient is pleasant and cooperative with exam. He is compliant with his medications. He describes future plans to travel to [place] and starting new life. Insight remains quite poor. He is oriented 3 and compliant with medications Mental Status Examination Appearance: Appropriate Consciousness: Alert Orientation: Person, Place, Date/Time (Vaguely) Motor Activity: Normal gait Speech: Unremarkable Language: Adequate Fund of Knowledge: Adequate Attention and Concentration: Easily distracted Memory: Impaired Mood: Appropriate Affect: Appropriate Thought Process & Associations: Circumstantial, Disorganized Thought Content: Preoccupations (With his vehicle and to be discharged) Hallucination Type: None Delusion Type: Paranoid (Less so) Suicidal Ideation: No Suicidal Plan: No Suicidal Intention: No Homicidal Ideation: No Homicidal Plan: No Homicidal Intention: No Insight: Poor Judgment: Poor Assessment and Plan - Assessment (1) Unspecified psychosis Code(s): F29 - Unspecified psychosis not due to a substance or known physiological condition Status: Acute - Plan Plan: Continue current treatment plan Justification for Continued Inpatient Stay: Patient would decompensate in a less restrictive setting Request Healthcare Surrogate/Guardian Advocate?: Yes (1) Unspecified psychosis Qualifiers: Psychosis type: brief psychotic disorder Qualified Code(s): F23 - Brief psychotic disorder
[2018-07-12] MEDS: Insulin NovoLOG Aspart Correctional Sugar Inj SQ SCH ×4 (03:00→20:32)
--- NOTE | 2018-07-12 09:33 | P.TTN ---
- Patient Problems Problems: 1. Discharge planning 2. Medication compliance 3. Knowledge deficit 4. Lack of coping skills - Progress Toward Goals Provider Present: Dr. Inessa Aldridge Provider Input: 07/12/2018; patient medication is stable, patient cotinues to be confused and unable to safely provide for himself. 07/07/18 Patient is less depressed, has some confusion and dementia. 07/05/18: Pt continues to accept his situation with lifting depressive symptoms and increased participation with discharge plan, wounds have not fully healed. 06/30/2018; patient can be dc to VA setting when medically cleared. Patient is being treated medically, and stablizing with treatment. Pt is delusional. There is no one to sign for medication. He had recent heart surgery. 06/23/18: Pt is expected to attend court hearing 06/24/18 for legal considerations. Nurse(s) Present: RN Nurse Input: 07/12/2018; patient is compliant with meals, medication and treatment. 07/05/18: Pt compliant with eating meals taking medications. 2017; patient is eating and taking meds. 06/29/2018; pateint is eating meals and taking his medications, no behavior. Pt is med compliant although he is refusing care for his ulcered wounds. He is DC oriented, with cognitive deficits , and [place] to transfer to the [place] hospital. 06/23/18: Pt continues to require medical care for wounds, he continues to express desire to return to [place] hospital. Psychiatric Counselors Present: Other Psychiatric Therapist Input: 07/12/2018; counselor will contact patient's son ( Betito) to arrange dc planning and transportation. 07/07/18 Destinee- Patient is in need of placement and looking to discharge to [facility] when stable. 07/05/18: Destinee; pt forecast is for VA discharge preferably in this local area, other options under consideration. 06/30/2018; patient will [place] [facility] [place] [facility] to set patient up with temp housing . Counselor will contact the following [place] providers for placement: Jerilyn Arevalo , with [facility] , [place] ([facility]) Tiffany, with the homeless [place] program and Andres with the [phone]. Pt is grandiose and delusional. He is covered 90% through the VA. He is connected to the VA in [place]. 06/23/18: Pt continues to meet criteria, expected discharge may include return to [facility]. Per Debbie's contact with family, family related housing is not an option. Group Spec/RT/OT/CRUZ Present: Huyen Sharp, GPS, Adriano Macias, OT Group Spec/RT/OT/CRUZ Input: 07/12/2018; patient has been unable to participate with groups; he has been less anxious and agiated towards treatment. 07/07/18 - Patient on isolation and cannot attend groups presently. 07/05/18: Pt on isolation precautions, he does not therefore attend groups. 06/30/2018; patient has been unable to attend groups due to medical. Patient is attending select groups and activities. Pt does not participate in groups. 06/23/18: Pt does not attend groups, per pt refusals. Occupational Therapist Input: No OT services - Discharge Plan Per medical staff; Pt expected to attend court hearing on 06/24/18, pt's D/C plan option is to return pt to [facility], pending court approval. - Documentation Scribe: Adriano Macias MS, OTR Teaching Recipient: Patient
[2018-07-12] MEDS: risperiDONE 2 MG ODT PO SCH ×2 (10:04→20:33)
[2018-07-12] MEDS: Lisinopril 5 MG Tablet PO SCH (10:05)
[2018-07-12] MEDS: Insulin Detemir Inj 1,000 UNIT/10 ML Vial SQ SCH ×2 (10:06→20:33)
[2018-07-12] MEDS: Furosemide 20 MG Tablet PO SCH ×2 (10:08→18:03)
[2018-07-12] MEDS: Enoxaparin Inj 40 MG/0.4 ML Syringe SQ SCH (10:09)
[2018-07-12] MEDS: Collagenase Oint 30 GM Tube TOPICAL SCH (10:12)
[2018-07-12] MEDS: Famotidine 20 MG Tablet PO SCH ×2 (13:19→20:33)
--- NOTE | 2018-07-12 16:41 | P.PNPSY ---
Subjective Remarks: Patient seen in his room with nurse Priscila, chart reviewed, patient compliant medication. Patient calm is somewhat excited about his son coming and he being discharged to her son. Though he says he is thinking about going with his son to [place]. In any event at this time patient denies suicidality homicidality voices or visions he has been no behavioral problem. For now continue treatment consider discharge to his son within the next day or 2 when he gets in town Review of Systems All other systems reviewed negative except as stated in HPI Mental Status Examination Appearance: Appropriate Consciousness: Alert Orientation: Person, Place, Date/Time (Vaguely) Motor Activity: Normal gait Speech: Unremarkable Language: Adequate Fund of Knowledge: Adequate Attention and Concentration: Easily distracted Memory: Impaired Mood: Appropriate Affect: Appropriate Thought Process & Associations: Circumstantial, Disorganized Thought Content: Preoccupations (With his vehicle and to be discharged) Hallucination Type: None Delusion Type: Paranoid (Less so) Suicidal Ideation: No Suicidal Plan: No Suicidal Intention: No Homicidal Ideation: No Homicidal Plan: No Homicidal Intention: No Insight: Poor Judgment: Poor Assessment and Plan - Assessment (1) Unspecified psychosis Code(s): F29 - Unspecified psychosis not due to a substance or known physiological condition Status: Acute - Plan Plan: Patient showing no behavior problems, denies suicidality homicidality voice or visions though is still somewhat grandiose about his considering going to [place] after his discharge Justification for Continued Inpatient Stay: At this time patient would decompensate if not placed in an appropriate level of care Discharge Planning: To be determined Request Healthcare Surrogate/Guardian Advocate?: Yes (1) Unspecified psychosis Qualifiers: Psychosis type: brief psychotic disorder Qualified Code(s): F23 - Brief psychotic disorder
[2018-07-13] MEDS: Insulin NovoLOG Aspart Correctional Sugar Inj SQ SCH ×5 (03:14→21:12)
[2018-07-13] MEDS: Lisinopril 5 MG Tablet PO SCH (10:41)
[2018-07-13] MEDS: risperiDONE 2 MG ODT PO SCH ×2 (10:42→20:35)
[2018-07-13] MEDS: Furosemide 20 MG Tablet PO SCH (10:42)
[2018-07-13] MEDS: Enoxaparin Inj 40 MG/0.4 ML Syringe SQ SCH (10:42)
[2018-07-13] MEDS: Insulin Detemir Inj 1,000 UNIT/10 ML Vial SQ SCH ×2 (10:42→21:14)
[2018-07-13] MEDS: Collagenase Oint 30 GM Tube TOPICAL SCH (10:42)
[2018-07-13] MEDS: Famotidine 20 MG Tablet PO SCH ×2 (10:42→20:35)
--- NOTE | 2018-07-13 11:06 | P.PNPSY ---
Subjective Remarks: Patient seen in his room with nurse Bryan, chart reviewed, patient compliant medication. There is been further communication with patient's son. He will be coming down here either tomorrow or to pick up worker his father. Patient is excited about seeing his son and leaving the hospital with him. At that time he and his son will discuss further plans for the patient. Perhaps towards [place]. He also will have to make arrangements to take care of his vehicle. Patient denies voices or visions denies suicidality homicidality. For now continue treatment Review of Systems All other systems reviewed negative except as stated in HPI Mental Status Examination Appearance: Appropriate Consciousness: Alert Orientation: Person, Place, Date/Time (Vaguely) Motor Activity: Normal gait Speech: Unremarkable Language: Adequate Fund of Knowledge: Adequate Attention and Concentration: Easily distracted Memory: Impaired Mood: Appropriate Affect: Appropriate Thought Process & Associations: Circumstantial, Disorganized Thought Content: Preoccupations (With his vehicle and to be discharged) Hallucination Type: None Delusion Type: Paranoid (Markedly diminished) Suicidal Ideation: No Suicidal Plan: No Suicidal Intention: No Homicidal Ideation: No Homicidal Plan: No Homicidal Intention: No Insight: Poor Judgment: Poor Assessment and Plan - Assessment (1) Unspecified psychosis Code(s): F29 - Unspecified psychosis not due to a substance or known physiological condition Status: Acute - Plan Plan: Patient calmer more focused appear to be processing well the discharge plans of him leaving [facility] with his son. 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
[2018-07-14] MEDS: Insulin NovoLOG Aspart Correctional Sugar Inj SQ SCH ×2 (03:32→22:00)
--- NOTE | 2018-07-14 18:42 | P.PNPSY ---
Subjective Remarks: Reviewed electronic medical record and discussed case with staff. Follow-up was conducted in the patient's room. Patient advises that he spoke with his son and he should be here tomorrow at 2 pm. Staff reports he has had no behavioral issues. Patient is pleasant and cooperative throughout the interview. Mental Status Examination Appearance: Appropriate Consciousness: Alert Orientation: Person, Place, Date/Time (Vaguely) Motor Activity: Normal gait Speech: Unremarkable Language: Adequate Fund of Knowledge: Adequate Attention and Concentration: Easily distracted Memory: Impaired Mood: Appropriate Affect: Appropriate Thought Process & Associations: Circumstantial, Disorganized Thought Content: Preoccupations (With his vehicle and to be discharged) Hallucination Type: None Delusion Type: Paranoid (Markedly diminished) Suicidal Ideation: No Suicidal Plan: No Suicidal Intention: No Homicidal Ideation: No Homicidal Plan: No Homicidal Intention: No Insight: Poor Judgment: Poor Assessment and Plan - Assessment (1) Unspecified psychosis Code(s): F29 - Unspecified psychosis not due to a substance or known physiological condition Status: Acute - Plan Plan: Patient to be discharged to son tomorrow. Justification for Continued Inpatient Stay: Moving this patient to a less restrictive environment would likely result in decompensation. Request Healthcare Surrogate/Guardian Advocate?: Yes (1) Unspecified psychosis Qualifiers: Psychosis type: brief psychotic disorder Qualified Code(s): F23 - Brief psychotic disorder
[2018-07-14] MEDS: risperiDONE 2 MG ODT PO SCH (21:57)
[2018-07-14] MEDS: Famotidine 20 MG Tablet PO SCH (21:58)
[2018-07-14] MEDS: Insulin Detemir Inj 1,000 UNIT/10 ML Vial SQ SCH (21:58)
[2018-07-15] MEDS: Insulin NovoLOG Aspart Correctional Sugar Inj SQ SCH ×7 (04:25→20:54)
[2018-07-15] MEDS: Furosemide 20 MG Tablet PO SCH ×2 (09:38→09:45)
[2018-07-15] MEDS: risperiDONE 2 MG ODT PO SCH ×3 (09:39→20:55)
[2018-07-15] MEDS: Collagenase Oint 30 GM Tube TOPICAL SCH ×2 (09:39→09:45)
[2018-07-15] MEDS: Lisinopril 5 MG Tablet PO SCH ×2 (09:39→09:43)
[2018-07-15] MEDS: Famotidine 20 MG Tablet PO SCH ×3 (09:39→20:55)
[2018-07-15] MEDS: Insulin Detemir Inj 1,000 UNIT/10 ML Vial SQ SCH ×3 (09:39→20:54)
[2018-07-15] MEDS: Enoxaparin Inj 40 MG/0.4 ML Syringe SQ SCH ×2 (09:39→09:44)
--- NOTE | 2018-07-15 16:07 | P.PNPSY ---
Subjective Remarks: Reviewed electronic medical records and discussed case with staff. Follow-up was conducted in the patient's room. Staff advised that the patient's son contacted this morning stating that his "plane had been delayed". Patient is understandably upset at this change and plans however, he seems to be handling it well. Was advised by Debbie counselor that the patient's son to contact her and is making arrangements to fly out possibly tomorrow. Mental Status Examination Appearance: Appropriate Consciousness: Alert Orientation: Person, Place, Date/Time (Vaguely) Motor Activity: Normal gait Speech: Unremarkable Language: Adequate Fund of Knowledge: Adequate Attention and Concentration: Easily distracted Memory: Impaired Mood: Appropriate Affect: Appropriate Thought Process & Associations: Circumstantial, Disorganized Thought Content: Preoccupations (With his vehicle and to be discharged) Hallucination Type: None Delusion Type: Paranoid (Markedly diminished) Suicidal Ideation: No Suicidal Plan: No Suicidal Intention: No Homicidal Ideation: No Homicidal Plan: No Homicidal Intention: No Insight: Poor Judgment: Poor Assessment and Plan - Assessment (1) Unspecified psychosis Code(s): F29 - Unspecified psychosis not due to a substance or known physiological condition Status: Acute - Plan Plan: Continue with current treatment plan. Hopeful for discharge tomorrow. Justification for Continued Inpatient Stay: Moving this patient to a less restrictive environment would likely result in decompensation. Discharge Planning: Awaiting son's arrival. Hopeful for discharge tomorrow. Request Healthcare Surrogate/Guardian Advocate?: Yes (1) Unspecified psychosis Qualifiers: Psychosis type: brief psychotic disorder Qualified Code(s): F23 - Brief psychotic disorder
[2018-07-15 22:37] VITALS: RESP 18
[2018-07-16] MEDS: Insulin NovoLOG Aspart Correctional Sugar Inj SQ SCH ×3 (02:05→11:22)
[2018-07-16 05:55] VITALS: BP 117/61; PULSE 91; TEMP 98; O2SAT 98
[2018-07-16] MEDS: Enoxaparin Inj 40 MG/0.4 ML Syringe SQ SCH (08:21)
[2018-07-16] MEDS: Insulin Detemir Inj 1,000 UNIT/10 ML Vial SQ SCH (08:21)
[2018-07-16] MEDS: Lisinopril 5 MG Tablet PO SCH (08:22)
[2018-07-16] MEDS: risperiDONE 2 MG ODT PO SCH (08:23)
[2018-07-16] MEDS: Famotidine 20 MG Tablet PO SCH (08:24)
[2018-07-16] MEDS: Furosemide 20 MG Tablet PO SCH (08:24)
[2018-07-16] MEDS: Collagenase Oint 30 GM Tube TOPICAL SCH (08:29)
--- NOTE | 2018-07-16 14:17 | P.DSPSY ---
Psychiatry Discharge Summary Inpatient Psychiatric care?: Yes Advance Directives: No Mental Health Advance Directive: No Health Care Proxy: No - Admission Admission Date: June 17, 2018 16:58 - Admission Diagnosis (1) Unspecified psychosis Code(s): F29 - Unspecified psychosis not due to a substance or known physiological condition (2) Mild cognitive impairment with memory loss Code(s): G31.84 - Mild cognitive impairment, so stated Brief History: Patient is a 67-year-old man, unclear where patient resides and with whom, , with unclear past psychiatric history, patient denies any previous psychiatric admissions, diagnoses, suicide attempt or self- injurious behavior, patient denies any substance use history, with a past medical history significant for hypertension, diabetes, cancers of heart failure , recent AICD, arthritis was transferred from [facility] for suspected psychosis S patient was noted to be disorganized, confused and delusional which patient was admitted to the inpatient psychiatry for further evaluation and management. As per [facility] act patient was planning to refuse further cardiac care, [place] also be mailed him and told him to get to [facility] which she drove down to [place] from [place] is also told him to. Patient was found sitting hospital chair in the room noted B, cooperative. Patient notes noted to be disorganized during interview with communications writer ideas, confused, oriented to person and the only. Patient states that he should not had put here in the hospital stating that he was on his way to [facility] he states he was gotten an email from Jacobo Hinton "blanket female". Patient also mentions having gone to [place] to help his son who was involved in drugs and states he was making his way back to [place]. 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 He states that prior to his admission he was driving on the highway had run out of gas and brought here to this hospital. Patient states that he is feeling "good " patient is a poor historian, with disorganized recalling of events and history. Family psychiatric history: Denies Past psychiatric history: Denies Substance use history: Denies Allergies: NKDA Past medical history: Hypertension, DM, CHF, recent AICD, arthritis Social history: 7 years ago, states living in [place], is a retired teacher, stated that he lived in a alf center in [place]. Collateral information obtained by treatment team confirmed through the [place] office that patient is 90% connected to the [place] in [place]. Tobacco Use In Past 30 Days: No How Often Do You Have a Drink Containing Alcohol: Monthly or less Hospital Course: The patient was initially psychotic, disorganized, delusional. Was admitted in psychiatry for stabilization and safety. Psychosocial psychiatric assessment performed. Safety measures taken. Patient was a started in Risperdal 1 mg twice daily that was titrated up to 2 mg twice daily. The patient was also started in individual and group therapies. He showed a good response to therapeutic measures. Significant improvement to the point that he was a very low risk of danger to self and others. At the moment of discharge patient much improved, he is ready to be discharged with his son. Denies suicidal enemas ideation, denies visual and auditory hallucinations - Discharge Discharge Date: 07/16/18 - Discharge Diagnosis (1) Unspecified psychosis Code(s): F29 - Unspecified psychosis not due to a substance or known physiological condition Status: Acute Discharge Disposition: [facility] long term - Discharge Instructions Discharge Diet: Diabetic Diet Activities You Can Perform: Regular- No Restrictions - Discharge Time > 30 minutes Mental Status Examination Appearance: Appropriate Consciousness: Alert Orientation: x4, Person, Place, Date/Time (Vaguely) Motor Activity: Normal gait Speech: Unremarkable Language: Adequate Fund of Knowledge: Adequate Attention and Concentration: Easily distracted Memory: Impaired Mood: Appropriate Affect: Appropriate Thought Process & Associations: Intact, Circumstantial Thought Content: Appropriate Hallucination Type: None Delusion Type: None Suicidal Ideation: No Suicidal Plan: No Suicidal Intention: No Homicidal Ideation: No Homicidal Plan: No Homicidal Intention: No Insight: Fair Judgment: Impulsive Discharge/Advance Care Plan - Results Vital Signs: Last Vital Signs Temp 98 F 07/16/18 05:54 Pulse 91 H 07/16/18 05:54 Resp 18 07/16/18 05:54 BP 117/61 07/16/18 05:54 Pulse Ox 98 07/16/18 05:54 Lab Results: Abnormal Lab Results 07/15/18 07/15/18 07/16/18 16:20 20:03 01:44 POC Glucose 112 H 166 H 73 07/16/18 07/16/18 06:12 11:09 POC Glucose 89 125 H Summary of Procedures: None Imaging: ITS Impressions Extremity Arterial Study 06/28/18 00:00 CONCLUSION: 1. Ankle-brachial indices could not be obtained. 2. Mild to moderately decreased toe brachial indices bilaterally, right greater than left. Consider CT angiography for better evaluation. Pending Results: None - Medications Number of antipsychotic medications at discharge: 1 - Discharge Care Plan Goals to Promote Your Health: * To prevent worsening of your condition and complications * To maintain your health at the optimal level Directions to Meet Your Goals: Take your medications as prescribed Follow your dietary instruction Follow activity as directed Keep your appointments as scheduled Take your immunizations and boosters as scheduled If your symptoms worsen call your PCP, if no PCP go to Urgent Care Center or Emergency Room For 18/05 questions related to your inpatient stay or results of tests pending at discharge, please contact Dr. Herman Hanna MD at [phone] Smoking is Dangerous to Your Health. Avoid second hand smoking (1) Unspecified psychosis Qualifiers: Psychosis type: brief psychotic disorder Qualified Code(s): F23 - Brief psychotic disorder (1) Unspecified psychosis Qualifiers: Psychosis type: brief psychotic disorder Qualified Code(s): F23 - Brief psychotic disorder
== END 2018-07-16 13:50 ==
LOC: H4EA 16:58
PROVIDERS: ADMIT Psychiatry & Neurology Psychiatry; ATTEND Psychiatry & Neurology Psychiatry